=== PATIENT | female | born 1940 ===

== ENCOUNTER 2017-04-16 03:53 | Inpatient (IN) | payer MEDICARE ==
[~2017-04-16] VITALS: Ht 162.6 cm; Wt 80.0 kg
--- NOTE | 2017-04-16 04:31 | ERD ---
ER Documentation Chief Complaint Chief Complaint HPI This 76-year-old female is brought in from her nursing facility for having high heart rate as well as being short of breath and having a cough. She denies fever and chills. Reports that she has pain all over her body. States the symptoms going on for the last few days. Says she does have chest tightness. Has a history of COPD does not feel like this is her COPD. ROS All systems reviewed and are negative except as per history of present illness. Allergies Allergies: Coded Allergies: Penicillins (Verified Allergy, Unknown, 01/04/14) Physical Exam Vitals Vital Signs Date Time Temp Pulse Resp B/P Pulse Ox O2 Delivery O2 Flow Rate FiO2 04/16/17 06:49 99.1 101 19 145/88 98 Non Rebreather 15.0 04/16/17 06:07 Non Rebreather 15.0 04/16/17 05:35 102 16 145/87 100 Non Rebreather 15.0 04/16/17 04:39 97.8 100 14 164/98 99 04/16/17 04:30 Non Rebreather 15 04/16/17 04:10 97.8 104 18 164/98 100 Non Rebreather 15.0 Physical Exam Const: [] Moderate distress Head: Atraumatic Eyes: Normal Conjunctiva ENT: Normal External Ears, Nose and Mouth. Neck: Full range of motion..~ No meningismus. Resp: Mild rhonchorous breath sounds bilaterally with good air movement, mild tachypnea Cardio: Regular tachycardia, no murmurs Abd: Soft, non tender, non distended. Normal bowel sounds Skin: No petechiae or rashes Back: No midline or flank tenderness Ext: No cyanosis, or edema, distal pulses intact all 4 extremities Neur: Awake and alert and oriented 3, no focal deficits Psych: Normal Mood and Affect Result Diagram: 04/16/1741904/16/17419 Results 24 hrs Laboratory Tests Test 04/16/17 04:10 04/16/17 04:20 04/16/17 05:16 04/16/17 05:40 Lactic Acid Level 0.6mmol/L 0.6mmol/L White Blood Count 11.910^3/ul Red Blood Count 3.7810^6/ul Hemoglobin 13.0g/dl Hematocrit 38.1% Mean Corpuscular Volume 100.8fl Mean Corpuscular Hemoglobin 34.4pg Mean Corpuscular Hemoglobin Concent 34.1g/dl Red Cell Distribution Width 13.9% Platelet Count 02011^3/UL Mean Platelet Volume 10.3fl Neutrophils % 68.2% Lymphocytes % 13.8% Monocytes % 7.8% Eosinophils % 9.3% Basophils % 0.5% Nucleated Red Blood Cells % 0.0/100WBC Neutrophils # 8.110^3/ul Lymphocytes # 1.610^3/ul Monocytes # 0.910^3/ul Eosinophils # 1.110^3/ul Basophils # 0.110^3/ul Nucleated Red Blood Cells # 0.010^3/ul Prothrombin Time 19.9Sec Prothrombin Time Ratio 1.6 INR International Normalized Ratio 1.65 Activated Partial Thromboplast Time 40.9Sec Sodium Level 139mmol/L Potassium Level 4.7mmol/L Chloride Level 103mmol/L Carbon Dioxide Level 27mmol/L Anion Gap 14 Blood Urea Nitrogen 28mg/dl Creatinine 0.52mg/dl Glucose Level 119mg/dl Calcium Level 8.7mg/dl Total Bilirubin 0.3mg/dl Direct Bilirubin 0.00mg/dl Indirect Bilirubin 0.3mg/dl Aspartate Amino Transf (AST/SGOT) 33IU/L Alanine Aminotransferase (ALT/SGPT) 40IU/L Alkaline Phosphatase 123IU/L Troponin I 0.065ng/ml B-Type Natriuretic Peptide 250PG/ML Total Protein 7.1g/dl Albumin 3.7g/dl Globulin 3.40g/dl Albumin/Globulin Ratio 1.08 Urine Color YELLOW Urine Clarity CLOUDY Urine pH 7.0 Urine Specific [place] 1.013 Urine Ketones NEGATIVEmg/dL Urine Nitrite POSITIVEmg/dL Urine Bilirubin NEGATIVEmg/dL Urine Urobilinogen NEGATIVEmg/dL Urine Leukocyte Esterase 3+Galo/ul Urine Microscopic RBC 21/HPF Urine Microscopic WBC 24/HPF Urine Amorphous Crystals FEW/HPF Urine Hemoglobin 2+mg/dL Urine Glucose NEGATIVEmg/dL Urine Total Protein 1+mg/dl Test 04/16/17 05:54 Bedside Urine pH (LAB) 7.0 Bedside Urine Protein (LAB) 1+ Bedside Urine Glucose (UA) Negative Bedside Urine Ketones (LAB) Negative Bedside Urine Blood 2+ Bedside Urine Nitrite (LAB) Positive Bedside Urine Leukocyte Esterase (L 3+ Current Medications Medications (Trade) Dose Ordered Sig/Hiram Route PRN Reason Start Time Stop Time Status Last Admin Dose Admin Cefepime HCl (Maxipime 2gm/50 ml (Pmx)) 50 ml @ 100 mls/hr ONCE ONCE IVPB 04/16/17 06:00 04/16/17 06:29 DC 04/16/17 06:42 Ondansetron HCl (Zofran Inj) 4 mg ER BRIDGE PRN IV NAUSEA AND/OR VOMITING 04/16/17 06:30 04/17/17 06:29 Acetaminophen (Tylenol Tab) 650 mg ER BRIDGE PRN PO MILD PAIN/FEVER 04/16/17 06:30 04/17/17 06:29 04/16/17 06:58 Acetaminophen/ Hydrocodone Bitart ([place] (5/325)) 1 tab Q6 PRN PO Pain 04/16/17 07:30 Procedures/MDM UTI with sepsis debilitated patient with multiple comorbidities causing tachycardia. She was given greater than 30 cc/kg of IV fluid, cultures were obtained. Patient was given cefepime empirically. Vital signs did improve with fluid administration. No hypotension. He is going to be admitted for further antibiotic therapy and close monitoring. Spoke with Dr. Mancilla to be admitting the patient to telemetry for further workup and monitoring. EKG interpretation: Sinus tachycardia with first-degree AV block, rate of 102, left axis deviation, no ST or T-wave changes concerning for acute ischemia. Abnormal EKG teletypesetter monitor interpretation: Sinus tachycardia without arrhythmia Chest x-ray interpretation: Significant scoliosis with extreme spinal curvature , I see no obvious infiltrate, no pulmonary edema, no pneumothorax, no fractures Critical care time greater than 35 minutes: This includes treatment of unstable vital signs, management of sepsis, early antibiotic therapy, multiple space bedside to reassess status, correction of unstable vital signs, review of chart , discussion with patient admitting doctor. This does not include billable procedures Departure Diagnosis: Primary Impression: Sepsis secondary to UTI Condition: Jasvir REEVESKIERRAJESSICADILAN PEREZ Apr 16, 2017 04:31
[2017-04-16 04:37] LABS: BASOPHIL # 0.1 10^3/ul (0.0-0.1); BASOPHILS % 0.5 % (0.0-2.0); EOSINOPHILS # 1.1 10^3/ul (0.0-0.5); EOSINOPHILS % 9.3 % (0.0-7.0); HEMATOCRIT 38.1 % (37.0-47.0); LYMPHOCYTES # 1.6 10^3/ul (0.8-2.9); LYMPHOCYTES % 13.8 % (15.0-51.0); MEAN CORPUSCULAR HEMOGLOBIN 34.4 pg (29.0-33.0); MEAN CORPUSCULAR HGB CONC 34.1 g/dl (32.0-37.0); MEAN CORPUSCULAR VOLUME 100.8 fl (82.0-101.0); MEAN PLATELET VOLUME 10.3 fl (7.4-10.4); MONOCYTE # 0.9 10^3/ul (0.3-0.9); MONOCYTES % 7.8 % (0.0-11.0); NEUTROPHIL # 8.1 10^3/ul (1.6-7.5); NEUTROPHILS % 68.2 % (39.0-77.0); PLATELET COUNT 216 10^3/UL (140-415); RED BLOOD COUNT 3.78 10^6/ul (4.20-5.40); RED CELL DISTRIBUTION WIDTH 13.9 % (11.5-14.5); WHITE BLOOD COUNT 11.9 10^3/ul (4.8-10.8)
[2017-04-16 04:58] LABS: INR 1.65; PROTIME 19.9 Sec (11.9-14.9); PT RATIO 1.6
[2017-04-16 04:59] LABS: PARTIAL THROMBOPLASTIN TIME 40.9 Sec (25.0-35.0)
[2017-04-16 05:01] LABS: ALBUMIN 3.7 g/dl (3.3-4.9); ALBUMIN/GLOBULIN RATIO 1.08; BILIRUBIN,INDIRECT 0.3 mg/dl (0-1.1); BILIRUBIN,TOTAL 0.3 mg/dl (0.2-1.3); CALCIUM 8.7 mg/dl (8.4-10.2); CREATININE 0.52 mg/dl (0.44-1.00); POTASSIUM 4.7 mmol/L (3.5-5.1); TOTAL PROTEIN 7.1 g/dl (6.1-8.1)
[2017-04-16 05:12] LABS: TROPONIN-I 0.065 ng/ml (0.00-0.12)
--- NOTE | 2017-04-16 05:41 | RADRPT ---
PROCEDURE: CHEST CLINICAL INDICATION: 76-year-old female with shortness of breath and sepsis. TECHNIQUE: AP upright view of the chest was obtained portably on two radiographs. The images were reviewed on a PACS workstation. COMPARISON: CR CHEST 01/16/2014; CR CHEST 01/05/2014 FINDINGS: The cardiomediastinal silhouette is enlarged but without significant interval change. The thoracic a hazel is calcified and ectatic. Chronic lung changes are present. There is consolidation and partial collapse of the right upper lobe. There is persistent mild blunting of the process the phrenic angle s which may scarring however a small pleural effusions cannot be excluded. There is no evidence for congestive heart failure. There is no evidence for pneumothorax. Marked thoracolumbar scoliosis is n oted. Degenerative changes are seen within the glenohumeral joints with marked deformity in the righ t humeral head. IMPRESSION: 1. Cardiomegaly. 2. Calcified thoracic aorta. 3. Right upper lobe consolidation and partial collapse. 4. Chronic lung changes. 5. Questionable small bilateral pleural effusions. 6. Degenerative changes glenohumeral joints with right humeral head deformity. 7. Marked thoracolumbar scoliosis. .Gary Burnham MD, MD Date Time Electronically viewed and signed by .Gary uBrnham MD, on 04/16/2017 05:41 .Brian/
[2017-04-16 05:54] LABS: URINE BLOOD (Dip) POC 2+ (NEGATIVE)
[2017-04-16] MEDS ORDERED: CEFEPIME 2GM/50 ML (PMX) 50 ML IVPB ONE ×3 (06:00→18:00)
[2017-04-16] MEDS ORDERED: ACETAMINOPHEN 325 MG TAB PO PRN (06:30)
[2017-04-16] MEDS ORDERED: ONDANSETRON 4 MG INJ IV PRN (06:30)
[2017-04-16 07:22] LABS: ADD UMIC YES; UR AMORPHOUS CRYSTAL FEW /HPF (NONE SEEN); UR ASCORBIC ACID NEGATIVE (NEGATIVE); UR BILIRUBIN (Dip) NEGATIVE (NEGATIVE); UR BLOOD (Dip) 2+ mg/dL (NEGATIVE); UR CLARITY CLOUDY (CLEAR); UR COLOR YELLOW (YELLOW); UR GLUCOSE (Dip) NEGATIVE (NEGATIVE); UR KETONES (Dip) NEGATIVE (NEGATIVE); UR LEUKOCYTE ESTERASE (Dip) 3+ Leu/ul (NEGATIVE); UR NITRITE (Dip) POSITIVE (NEGATIVE); UR RBC 21 /HPF (0-5); UR SPECIFIC GRAVITY (Dip) 1.013 (1.003-1.030); UR TOTAL PROTEIN (Dip) 1+ mg/dl (NEGATIVE); UR UROBILINOGEN (Dip) NEGATIVE (NEGATIVE)
[2017-04-16] MEDS ORDERED: SOD CHLORIDE 0.9% 1,000 ML IV ONE ×2 (08:00)
[2017-04-16] MEDS ORDERED: SOD CHLORIDE 0.9% 500 ML IV ONE (08:00)
[2017-04-16] MEDS: HYDROCODONE/APAP (5/325) TAB PO PRN ×2 (08:58→20:43)
--- NOTE | 2017-04-16 09:21 | RADRPT ---
PROCEDURE: Right shoulder series CLINICAL INDICATION: Trauma TECHNIQUE: 2 views right shoulder were obtained COMPARISON: Chest same day FINDINGS: Pleural parenchymal changes involving the right upper hemithorax and recommend reference to the ches t Report same day. There is severe degenerate joint disease of the right acromioclavicular and gleno humeral joints. No definite acute fractures or dislocations. The bones are osteopenic. No focal bony blastic or lytic lesions. IMPRESSION: 1. 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 2. Recommend reference to the chest Report same day for lung findings. RPTAT:AAJJ Physician Pilo Date Time Electronically viewed and signed by Leann Kincaid Physician on 04/16/2017 09:20 BM/
--- NOTE | 2017-04-16 09:21 | RADRPT ---
PROCEDURE: left shoulder series CLINICAL INDICATION: Trauma TECHNIQUE: 2 views left shoulder were obtained COMPARISON: None FINDINGS: There is severe degenerate joint disease left glenohumeral joint. Mild degenerate joint disease left acromioclavicular joint. No evidence acute fracture dislocation or AC separation. The bones are ost eopenic without focal bony blastic or lytic lesions. IMPRESSION: Degenerate joint disease left glenohumeral and acromioclavicular joints as above without evidence of acute fracture dislocation or AC separation. RPTAT:AAJJ Physician Pilo Date Time Electronically viewed and signed by Physician Pilo on 04/16/2017 09:21 /
--- NOTE | 2017-04-16 10:16 | CONS ---
Date/Time of Note Date/Time of Note DATE: 04/16/17 TIME: 10:14 Assessment/Plan Assessment/Plan Additional Assessment/Plan UTI COPD ATYPICAL CHEST PAIN SINUS TACHYCARDIA -will check trops, echo, ekg -moniotr for arrythmias -abx initiated -possible hhn and pulm management Consultation Date/Type/Reason Admit Date/Time Hx of Present Illness This 76-year-old female is brought in from her nursing facility for having high heart rate as well as being short of breath and having a cough. She denies fever and chills. Reports that she has pain all over her body. States the symptoms going on for the last few days. Says she does have chest tightness. Has a history of COPD does not feel like this is her COPD. She is currently homedynacmially stable with sinus tachycardia but no palpitioans and no dizziness Social History Smoking Status: Former smoker Exam/Review of Systems Vital Signs Vitals Vital Signs Date Time Temp Pulse Resp B/P Pulse Ox O2 Delivery O2 Flow Rate FiO2 04/16/17 06:49 99.1 101 19 145/88 98 Non Rebreather 15.0 Results Result Diagram: 04/16/17 0420 04/16/17 0420 Results 24 hrs Laboratory Tests Test 04/16/17 04:10 04/16/17 04:20 04/16/17 05:16 04/16/17 05:40 Lactic Acid Level 0.6 0.6 White Blood Count 11.9 H Red Blood Count 3.78 #L Hemoglobin 13.0 # Hematocrit 38.1 # Mean Corpuscular Volume 100.8 Mean Corpuscular Hemoglobin 34.4 H Mean Corpuscular Hemoglobin Concent 34.1 Red Cell Distribution Width 13.9 # Platelet Count 216 Mean Platelet Volume 10.3 Neutrophils % 68.2 Lymphocytes % 13.8 L Monocytes % 7.8 Eosinophils % 9.3 H Basophils % 0.5 Nucleated Red Blood Cells % 0.0 Neutrophils # 8.1 H Lymphocytes # 1.6 Monocytes # 0.9 Eosinophils # 1.1 H Basophils # 0.1 Nucleated Red Blood Cells # 0.0 Prothrombin Time 19.9 H Prothrombin Time Ratio 1.6 INR International Normalized Ratio 1.65 Activated Partial Thromboplast Time 40.9 H Sodium Level 139 Potassium Level 4.7 Chloride Level 103 Carbon Dioxide Level 27 Anion Gap 14 Blood Urea Nitrogen 28 H Creatinine 0.52 Glucose Level 119 Calcium Level 8.7 Total Bilirubin 0.3 Direct Bilirubin 0.00 Indirect Bilirubin 0.3 Aspartate Amino Transf (AST/SGOT) 33 Alanine Aminotransferase (ALT/SGPT) 40 Alkaline Phosphatase 123 H Troponin I 0.065 B-Type Natriuretic Peptide 250 Total Protein 7.1 Albumin 3.7 Globulin 3.40 H Albumin/Globulin Ratio 1.08 Urine Color YELLOW Urine Clarity CLOUDY A Urine pH 7.0 Urine Specific [place] 1.013 Urine Ketones NEGATIVE Urine Nitrite POSITIVE A Urine Bilirubin NEGATIVE Urine Urobilinogen NEGATIVE Urine Leukocyte Esterase 3+ H Urine Microscopic RBC 21 H Urine Microscopic WBC 24 H Urine Amorphous Crystals FEW A Urine Hemoglobin 2+ H Urine Glucose NEGATIVE Urine Total Protein 1+ H Test 04/16/17 05:54 Bedside Urine pH (LAB) 7.0 Bedside Urine Protein (LAB) 1+ H Bedside Urine Glucose (UA) Negative Bedside Urine Ketones (LAB) Negative Bedside Urine Blood 2+ H Bedside Urine Nitrite (LAB) Positive H Bedside Urine Leukocyte Esterase (L 3+ H Medications Medications Current Medications Acetaminophen/ Hydrocodone Bitart ([place] (5/325)) 1 tab Q6 PRN PO Pain Last administered on 04/16/17t 08:58; Admin Dose 1 TAB; Start 04/16/17 at 07:30 JOYCE RIVERA MD Apr 16, 2017 10:16
[2017-04-16] MEDS ORDERED: CITA20TA11 PO (11:25)
[2017-04-16] MEDS ORDERED: LACTINEX PO (11:25)
[2017-04-16] MEDS ORDERED: DOCU-144 PO (11:26)
[2017-04-16] MEDS ORDERED: CRAN425C2 PO (11:26)
[2017-04-16] MEDS ORDERED: IPRA3AMP INHALATION (11:27)
[2017-04-16] MEDS ORDERED: BISA10SU75 PR (11:27)
[2017-04-16] MEDS ORDERED: MINE133E23 RC (11:28)
[2017-04-16] MEDS ORDERED: ALEN70TA30 PO ×2 (11:29→11:30)
[2017-04-16] MEDS ORDERED: GABA300C16 PO (11:30)
[2017-04-16] MEDS ORDERED: FURO-110 PO (11:36)
[2017-04-16] MEDS ORDERED: MULTI PO (11:37)
[2017-04-16] MEDS ORDERED: HYDR-906 PO (11:37)
[2017-04-16] MEDS ORDERED: UDMOM PO (11:37)
[2017-04-16] MEDS ORDERED: POTA20TA96 PO (11:38)
[2017-04-16] MEDS ORDERED: TRAM-40 PO (11:38)
[2017-04-16] MEDS ORDERED: CALC600T24 PO (11:39)
[2017-04-16] MEDS ORDERED: ACET-141 PO (11:39)
[2017-04-16] MEDS ORDERED: CRAN3875 PO (11:40)
[2017-04-16] MEDS ORDERED: ASCO500C7 PO (11:40)
[2017-04-16] MEDS ORDERED: CHOL100062 PO (11:41)
[2017-04-16] MEDS ORDERED: LORAZEPAM 2 MG INJ IV ONE (13:00)
[2017-04-16] MEDS ORDERED: ALBUTEROL/IPRATROPIUM (NEB) 3 ML AMP HHN STA (13:57)
--- NOTE | 2017-04-16 14:37 | HP ---
DATE OF ADMISSION: 04/16/2017 CHIEF COMPLAINT: Shortness of breath and respiratory failure. HISTORY OF PRESENT ILLNESS: This is a 76-year-old female with a past medical history of DVT, histor y of hypertension, history of anemia, history of chronic pain syndrome, history of chronic left hip wound, history of severe arthritis, history of hypothyroidism, who presents to [facility] Emergency Room with shortness of breath and respiratory failure. The patient was noted to b e short of breath, to be tachycardic at her [facility] facility. As a result, she was brought into [facility] Emergency Room. Upon arrival to the emergency room, the patient h ad vitals that showed a blood pressure of 164/98. Laboratory data shows white count 11,000. The pa daniel had a urinalysis with positive nitrites, pyuria, hematuria. The patient, in the emergency crys m, was placed on 100% nonrebreather and was given Tylenol and IV antibiotics. There have been no re ports of hemoptysis, hematemesis, hematochezia. PAST MEDICAL HISTORY: As stated above, history of DVT, history of arrhythmia, history of COPD, hist ory of hypertension, history of anemia, history of debility, history of chronic hip wound. PAST SURGICAL HISTORY: Status post left hip arthroplasty, status post suprapubic catheter placement . ALLERGIES: PATIENT IS ALLERGIC TO PENICILLIN. FAMILY HISTORY: Noncontributory. SOCIAL HISTORY: Lives at a skilled nurse facility. MEDICATIONS: The patient's medications have been reviewed and reconciled. REVIEW OF SYSTEMS: A 14-point review of systems was conducted. Pertinent positives in HPI, otherwi se negative. PHYSICAL EXAMINATION: VITAL SIGNS: Blood pressure is 145/88, respiration 19, pulse 101, temperature 99.1. HEENT: Head is normocephalic. Pupils are reactive to light. NECK: Supple. HEART: Tachycardic. LUNGS: Show diminished breath sounds at base. Positive rhonchi. ABDOMEN: Soft, nontender to palpation. Positive suprapubic catheter. EXTREMITIES: Negative for clubbing, cyanosis. Trace edema. DERMATOLOGIC: No rashes. MUSCULOSKELETAL: No joint effusions. The patient has healing wounds. NEUROLOGIC: Limited exam due to the patient's lack of cooperation. LABORATORY DATA STUDIES: Chest x-ray shows right upper lobe consolidation and partial collapse, chr onic lung changes, questionable bilateral pleural effusions, and degenerative changes in the glenohu meral joint with right humeral head deformity. Laboratory data shows a sodium 139, potassium 4.7, chloride 103, BUN 28, creatinine 0.52. White cou nt 9.9, hemoglobin 13.0, and platelet count is 216. ASSESSMENT AND PLAN: This is a 76-year-old female who presents with: 1. Acute hypoxemic respiratory failure. Etiology is felt to be secondary to possible pneumonia, sep sis. The patient is currently on 100% nonrebreather. Plan at this point is to check an ABG. We wi ll continue nebulizer therapy, continue nonrebreather. We will place a pulmonary consult for evalua tion. Please note the patient may also be having an underlying chronic obstructive pulmonary diseas e exacerbation. 2. Sepsis secondary to urinary tract infection and pneumonia. Continue current antibiotic regimen. We will place an Infectious Disease consult for evaluation. 3. Acute encephalopathy, etiology toxic metabolic. Continue to monitor. 4. Hypertension. The patient will be resumed on blood pressure medications. Continue to observe. 5. History of arrhythmia, currently in sinus rhythm. Continue to monitor. Follow up with Cardiolog y. 6. History of deep venous thrombosis. The patient is currently on Coumadin. INR is not at goal. W ill resume anticoagulation therapy. 7. History of anemia, monitor hemoglobin and hematocrit levels. 8. Chronic lower extremity left hip wound, improving. Will place a wound care consult for evaluatio n. 9. Degenerative changes in the right humeral head. Will get bilateral x-rays of the arms for furthe r evaluation. 10. Chronic pain syndrome. Continue current pain regimen. 11. Gastrointestinal and deep venous thrombosis prophylaxis. Please note I spent over 25 minutes in vuee-yx-dati time with this patient. The patient is DNR. Dictated By: DARRICK BROWNE DO NR/NTS Conf#: [id number] DID#: [id number]
[2017-04-16 17:00] VITALS: TEMP 98.3
[2017-04-16] MEDS ORDERED: MAGNESIUM HYDROXIDE 30ML CUP PO PRN (18:00)
[2017-04-16] MEDS ORDERED: ALBUTEROL/IPRATROPIUM (NEB) 3 ML AMP NEB PRN (18:00)
[2017-04-16] MEDS ORDERED: MINERAL OIL 133 ML ENEMA PR PRN (18:00)
[2017-04-16] MEDS ORDERED: ACETAMINOPHEN 500 MG TAB PO PRN (18:00)
[2017-04-16] MEDS ORDERED: BISACODYL 10 MG SUPP PR PRN (18:00)
[2017-04-16] MEDS ORDERED: DOCUSATE SODIUM 100 MG CAP PO PRN (18:00)
--- NOTE | 2017-04-16 18:02 | CONS ---
DATE OF ADMISSION: 04/16/2017 DATE OF CONSULTATION: 04/16/2017 INFECTIOUS DISEASE CONSULTATION TYPE OF CONSULTATION: Infectious Disease. REASON FOR CONSULTATION: Antibiotic management. HISTORY OF PRESENT ILLNESS: Agustina Guzman is a 76-year-old female who was admitted on 04/16/2017 from her nursing facility for tachycardia and shortness of breath. She denies fever or chills, but does have a cough and pain all over her body. Symptoms have been going on for the last few days with ch est tightness. Has a history of COPD, but this is different than what she usually feels. SHE IS AL SO ALLERGIC TO PENICILLIN. On admission, her white count was 11.9, H and H of 13 and 38.1, platelet count 216,000. BUN and creatinine 28/0.52. Random glucose of 119. The patient was noted to have a urine which was cloudy, positive for nitrites, 3+ leukocyte esterase, 24 white cells per high thanh red field. The patient was started on cefepime. PAST MEDICAL HISTORY: Operations as outlined. FAMILY HISTORY: Noncontributory. SOCIAL HISTORY: She does not smoke, drink or abuse drugs. ALLERGIES: PENICILLIN. MEDICATIONS: Per chart. REVIEW OF SYSTEMS: Noncontributory. PHYSICAL EXAMINATION: GENERAL: The patient is a well-developed, well-nourished elderly female who is awake, responsive, i n no acute distress. VITAL SIGNS: Stable. She is afebrile. SKIN: Without generalized rash. HEENT: Within normal limits. NECK: Supple. LYMPH NODES: None palpable. CHEST: Decreased breath sounds at the bases with occasional rhonchi. HEART: Without murmur or gallop. She is tachycardic. ABDOMEN: Soft, nontender, without organosplenomegaly or masses. EXTREMITIES: Without cyanosis, clubbing, or edema. RECTAL AND GENITAL: Deferred. NEUROLOGIC: No focal neurological abnormalities. ANCILLARY LABORATORY DATA: A chest x-ray shows cardiomegaly, calcified thoracic aorta, right upper lobe consolidation and partial collapse, chronic lung changes, questionable small bilateral pleural effusions, degenerative changes in the glenohumeral joint with right humeral head deformity, marked thoracolumbar scoliosis. IMPRESSION AND PLAN: The patient has both evidence of urinary tract infection as well as pneumoniti s. She is currently on cefepime to which I concur. She has blood cultures ordered, urine cultures ordered. We should get sputum cultures as well. I will dictate my findings to the hospitalist and to Dr. Ortega, creative arts music therapist. Dictated By: STEPHANIE MORTENSEN MD, JD/JOSE Conf#: [id number] DID#: [id number]
[2017-04-16 18:10] VITALS: PULSE 79
--- NOTE | 2017-04-16 18:17 | CONS ---
DATE OF ADMISSION: 04/16/2017 DATE OF CONSULTATION: TYPE OF CONSULTATION: Pulmonary. REASON FOR CONSULTATION: Shortness of breath. Thank you, Dr. Estevez, for this consultation. HISTORY OF PRESENT ILLNESS: This is a 76-year-old lady with multiple medical problems, frequent adm issions to [facility], admitted with several-day history of increasing shortness o f breath, orthopnea, PND, now requiring nonrebreather. Her POLST states she is a DNR and comfort me asures if she deteriorates. PAST MEDICAL HISTORY: Includes recurrent hypoxemic respiratory failure, aspiration pneumonia, conge stive cardiac failure. MEDICATIONS: Per chart. ALLERGIES: PENICILLIN. SOCIAL HISTORY: Nonsmoker, no alcohol, no history of drug use. FAMILY HISTORY: Noncontributory. SYSTEMS REVIEW: A 12-point review of systems was negative other than that mentioned above. PHYSICAL EXAMINATION: GENERAL: Elderly-appearing lady, eyes open, on nonrebreather, mild confusion. VITAL SIGNS: Currently afebrile, pulse is 98, blood pressure 156/97, O2 saturation 96% on nonrebrea ther. NECK: Supple. No JVD or lymphadenopathy. CARDIAC: S1, S2, no added sounds or murmurs. CHEST: Diminished air entry bilaterally. ABDOMEN: Soft, nontender. No guarding or rebound. EXTREMITIES: No cyanosis, clubbing, or edema. NEUROLOGIC: Generalized weakness. LABORATORY DATA: White count 11.9, hemoglobin 13, platelets within normal limits. BUN 28, creatini ne 0.52. INR 1.65. DIAGNOSTIC DATA: Chest x-ray was reviewed, showed low lung volumes, right upper lobe consolidation, ____ collapse. Shoulder x-rays demonstrate degenerative joint disease without any evidence of frac ture or dislocation. IMPRESSION AND PLAN: 1. Hypoxemic respiratory failure, likely secondary to healthcare-associated pneumonia. 2. Possible aspiration component. 3. History of shoulder injury. PLAN: 1. Continue broad-spectrum antibiotics. 2. Supplemental O2. 3. DVT and GI prophylaxis. Overall prognosis remains guarded. Dictated By: FARIBA SINGH MD SV/JOSE Conf#: [id number] DID#: [id number] CC: DARRICK ESTEVEZ DO;*EndCC*
[2017-04-16 20:00] VITALS: Ht 162.6 cm; Wt 80.0 kg
[2017-04-16 20:07] VITALS: PULSE 85
[2017-04-16] MEDS: GABAPENTIN 300 MG CAP PO SCH (20:12)
[2017-04-16 20:22] VITALS: BP 170/77; RESP 19
[2017-04-16] MEDS: LACTOBACILLUS RHAMNOSUS CAP PO SCH (21:00)
[2017-04-16] MEDS ORDERED: NON-FORMULARY/PATIENT OWN MED (Cran/Vitc/Mannose/Inulin/Brom (Uti-Stat Liquid) 3,875 MG) PO SCH (21:00)
[2017-04-16] MEDS ORDERED: NON-FORMULARY/PATIENT OWN MED (Cranberry Extract (Cranberry) 425 MG) PO SCH (21:00)
[2017-04-16] MEDS: GUAIFENESIN/CODEINE 5ML CUP PO PRN (22:23)
[2017-04-16] MEDS: traMADol 50 MG TAB PO PRN (23:05)
[2017-04-16] MEDS: ALBUTEROL/IPRATROPIUM (NEB) 3 ML AMP NEB PRN (23:19)
[2017-04-16 23:53] VITALS: BP 151/73; RESP 19
[2017-04-17] VITALS (11 sets, daily range): BP systolic 118–144; BP diastolic 60–77; PULSE 72–85; RESP 18–22
[2017-04-17] MEDS ORDERED: PENDING SANTYL ORDER FOR WOUND CARE XX PRN (01:30)
[2017-04-17] MEDS: HYDROCODONE/APAP (5/325) TAB PO PRN ×3 (03:44→17:50)
[2017-04-17] MEDS: GUAIFENESIN/CODEINE 5ML CUP PO PRN ×3 (03:44→20:49)
[2017-04-17] MEDS: ALBUTEROL/IPRATROPIUM (NEB) 3 ML AMP NEB PRN ×4 (04:03→20:56)
[2017-04-17 06:51] LABS: BASOPHIL # 0.1 10^3/ul (0.0-0.1); BASOPHILS % 0.6 % (0.0-2.0); EOSINOPHILS # 0.3 10^3/ul (0.0-0.5); EOSINOPHILS % 2.3 % (0.0-7.0); HEMATOCRIT 37.4 % (37.0-47.0); HEMOGLOBIN 12.5 g/dl (12.0-16.0); LYMPHOCYTES # 1.4 10^3/ul (0.8-2.9); LYMPHOCYTES % 12.2 % (15.0-51.0); MEAN CORPUSCULAR HEMOGLOBIN 34.1 pg (29.0-33.0); MEAN CORPUSCULAR HGB CONC 33.4 g/dl (32.0-37.0); MEAN CORPUSCULAR VOLUME 101.9 fl (82.0-101.0); MEAN PLATELET VOLUME 10.7 fl (7.4-10.4); MONOCYTE # 1.2 10^3/ul (0.3-0.9); MONOCYTES % 10.4 % (0.0-11.0); NEUTROPHIL # 8.6 10^3/ul (1.6-7.5); PLATELET COUNT 203 10^3/UL (140-415); RED BLOOD COUNT 3.67 10^6/ul (4.20-5.40); RED CELL DISTRIBUTION WIDTH 13.5 % (11.5-14.5); WHITE BLOOD COUNT 11.6 10^3/ul (4.8-10.8)
[2017-04-17 07:00] LABS: INR 2.48; PROTIME 27.5 Sec (11.9-14.9); PT RATIO 2.1
[2017-04-17 07:15] LABS: CALCIUM 8.6 mg/dl (8.4-10.2); CREATININE 0.34 mg/dl (0.44-1.00); MAGNESIUM 1.9 mg/dl (1.7-2.5); PHOSPHORUS 3.1 mg/dl (2.5-4.9); POTASSIUM 4.2 mmol/L (3.5-5.1)
[2017-04-17] MEDS ORDERED: ALENDRONATE 70 MG TAB PO SCH (07:30)
--- NOTE | 2017-04-17 07:50 | RADRPT ---
PROCEDURE: XR Chest. CLINICAL INDICATION: Respiratory failure TECHNIQUE: AP Portable chest. COMPARISON: 01/16/2014 chest x-ray FINDINGS: The soft tissues and bones are remarkable for dextroscoliosis of the thoracic spine with bilateral a cromioclavicular osteoarthropathy and severe right greater than left glenohumeral osteoarthropathy. Mild cardiomegaly and vascular calcifications of the thoracic aorta are noted. Bibasilar discoid ate lectasis or infiltrates are present with small bilateral pleural effusions. No pneumothorax is pre sent. IMPRESSION: 1. Bibasilar discoid atelectasis and small bilateral pleural effusions. 2. Mild cardiomegaly and atherosclerotic vascular disease 3. Dextroscoliosis of the thoracic spine with degenerative changes as indicated above and bilateral glenohumeral and acromioclavicular RPTAT: HDC .Suad Duran MD, Date Time Electronically viewed and signed by .Suad Duran MD, on 04/17/2017 07:50 .C/
[2017-04-17] MEDS: CHOLECALCIFEROL 1,000 UNIT TAB PO SCH ×2 (08:38→09:58)
[2017-04-17] MEDS: GABAPENTIN 300 MG CAP PO SCH ×4 (08:39→20:49)
[2017-04-17] MEDS: POTASSIUM CHLORIDE (SR) 20 MEQ TAB PO SCH (08:39)
[2017-04-17] MEDS: CALCIUM CARBONATE 1.25 GM TAB PO SCH (08:39)
[2017-04-17] MEDS: CITALOPRAM 20 MG TAB PO SCH (08:39)
[2017-04-17] MEDS: MULTIVITAMINS THERAPEUTIC TAB PO SCH (08:39)
[2017-04-17] MEDS: LACTOBACILLUS RHAMNOSUS CAP PO SCH ×2 (08:39→20:49)
[2017-04-17] MEDS: ASCORBIC ACID 500 MG TAB PO SCH (08:39)
[2017-04-17] MEDS: CEFEPIME 2GM/50 ML (PMX) 50 ML IVPB SCH ×2 (08:39→20:57)
[2017-04-17] MEDS: FUROSEMIDE 20 MG TAB PO SCH (08:40)
[2017-04-17 08:57] LABS: AADO2 Arterial 134.9 mmHg (7.0-24.0); Allen Test ACCEPTAB; Arterial Base Excess -3.1 mmol/L (-3.0-3); Arterial COHb 0.4 % (0.0-3.0); Arterial Fraction of Oxyhgb 93.3 % (93.0-99.0); Arterial HCO3 23.3 mmol/L (22.0-26.0); Arterial MetHb 0.3 % (0.0-1.5); Arterial Total Hemglobin 13.9 g/dl (12.0-18.0); MODE NASAL CANNULA
--- NOTE | 2017-04-17 09:59 | CONS ---
Date/Time of Note Date/Time of Note DATE: 04/17/17 TIME: 09:55 Assessment/Plan Assessment/Plan Additional Assessment/Plan Sepsis likely secondary to pneumonia and possible UTI Preserved ejection fraction Hypertension History of DVT on anticoagulation -Antibiotics as per infectious disease. Coumadin as per INR. Patient on low- dose Lasix. Continue respiratory treatments as tolerated. Dr Hogan to resume care 04/18/2017 Consultation Date/Type/Reason Admit Date/Time Apr 16, 2017 at 06:14 Initial Consult Date Type of Consultation: cv 24 HR Interval Summary Free Text/Dictation Shortness of breath is slightly better today but still with cough. Denies chest pain or dizziness Exam/Review of Systems Vital Signs Vitals Vital Signs Date Time Temp Pulse Resp B/P Pulse Ox O2 Delivery O2 Flow Rate FiO2 04/17/17 09:15 80 18 95 Nasal Cannula 4.0 04/17/17 07:45 98.8 140/63 Intake and Output 04/16/17 04/16/17 04/17/17 15:00 23:00 07:00 Intake Total 500 ml Output Total 700 ml Balance -200 ml Exam Coughing at times during exam, no apparent distress, following commands Constitutional: alert Head: normocephalic Respiratory: other (Coarse breath sounds bilaterally with scattered rhonchi, no wheezing) Cardiovascular: other (S1-S2 heard), regular rate and rhythm Gastrointestinal: bowel sounds, non-tender, soft Extremities: edema Results Result Diagram: 04/17/1714 04/17/1714 Results 24 hrs Laboratory Tests Test 04/17/17 06:14 04/17/17 07:00 White Blood Count 11.6 H Red Blood Count 3.67 L Hemoglobin 12.5 Hematocrit 37.4 Mean Corpuscular Volume 101.9 H Mean Corpuscular Hemoglobin 34.1 H Mean Corpuscular Hemoglobin Concent 33.4 Red Cell Distribution Width 13.5 Platelet Count 203 Mean Platelet Volume 10.7 H Neutrophils % 74.0 Lymphocytes % 12.2 L Monocytes % 10.4 Eosinophils % 2.3 Basophils % 0.6 Nucleated Red Blood Cells % 0.0 Neutrophils # 8.6 H Lymphocytes # 1.4 Monocytes # 1.2 H Eosinophils # 0.3 Basophils # 0.1 Nucleated Red Blood Cells # 0.0 Prothrombin Time 27.5 #H Prothrombin Time Ratio 2.1 INR International Normalized Ratio 2.48 Sodium Level 140 Potassium Level 4.2 Chloride Level 106 Carbon Dioxide Level 24 Anion Gap 14 Blood Urea Nitrogen 18 # Creatinine 0.34 L Glucose Level 96 Calcium Level 8.6 Phosphorus Level 3.1 Magnesium Level 1.9 Blood Gas Specimen Source Blood arterial Arterial Blood Date Drawn 04/17/2017 8:45:10 AM Arterial Blood pH (Temp corrected) 7.318 L Arterial Blood pCO2 (Temp correct) 46.4 H Arterial Blood pO2 (Temp corrected) 68.0 L Arterial Blood HCO3 23.3 Arterial Blood Base Excess -3.1 L Arterial Blood Oxygen Saturation 94.0 L Thomas Test ACCEPTAB Arterial Blood Gas Puncture Site Right Radial Arterial Blood Carboxyhemoglobin 0.4 Arterial Blood Methemoglobin 0.3 Blood Gas A-a O2 Differential 134.9 H Oxyhemoglobin Percent 93.3 Total Hemoglobin 13.9 Blood Gas Temperature 37.0 Blood Gas Modality NASAL CANNULA FiO2 36.0 Blood Gas Notified Whom DT Blood Gas Notified Time 04/17/2017 8:57:34 AM Medications Medications Current Medications Acetaminophen/ Hydrocodone Bitart ([place] (5/325)) 1 tab Q6 PRN PO Pain Last administered on 04/17/17 03:44; Admin Dose 1 TAB; Start 04/16/17 at 07:30 Acetaminophen (Tylenol Tab) 1,000 mg Q6H PRN PO PAIN AND OR ELEVATED TEMP; Start 04/16/17 at 18:00 Alendronate Sodium (Fosamax) 70 mg Loya@0730 PO Last administered on 04/17/17 08:20; Admin Dose 70 MG; Start 04/17/17 at 07:30 Ascorbic Acid (Vitamin C) 500 mg DAILY PO Last administered on 04/17/17 08:39 ; Admin Dose 500 MG; Start 04/17/17 at 09:00 Bisacodyl (Dulcolax Supp) 10 mg Q24H PRN [place] CONSTIPATION; Start 04/16/17 at 18 :00 Cholecalciferol (Vitamin D) 1,000 unit DAILY PO Last administered on 08:38; Admin Dose 1,000 UNIT; Start 04/17/17 at 09:00 Citalopram Hydrobromide (Celexa) 20 mg DAILY PO Last administered on 08:39; Admin Dose 20 MG; Start 04/17/17 at 09:00 Docusate Sodium (Colace) 200 mg QHS PRN PO CONSTIPATION; Start 04/16/17 at 18: 00 Furosemide (Lasix) 10 mg DAILY PO Last administered on 04/17/17 08:40; Admin Dose 10 MG; Start 04/17/17 at 09:00 Gabapentin (Neurontin) 300 mg QID PO Last administered on 04/17/17 08:39; Admin Dose 300 MG; Start 04/16/17 at 21:00 Acetaminophen/ Hydrocodone Bitart ([place] (5/325)) 1 tab Q4 PRN PO SEVERE PAIN LEVEL 7-10 Last administered on 04/16/17 20:43; Admin Dose 1 TAB; Start 04/16 at 18:00 Magnesium Hydroxide (Milk Of Mag) 30 ml DAILY PRN PO CONSTIPATION; Start 04/16 at 18:00 Mineral Oil (Fleet Mineral Oil Enema) 133 ml DAILY PRN [place] CONSTIPATION; Start 04/16/17 at 18:00 Multivitamins Therapeutic (Theragran) 1 tab DAILY PO Last administered on 04/17 08:39; Admin Dose 1 TAB; Start 04/17/17 at 09:00 Potassium Chloride (Klor-Con 20) 20 meq DAILY PO Last administered on 08:39; Admin Dose 20 MEQ; Start 04/17/17 at 09:00 Tramadol HCl (Ultram) 50 mg BID PRN PO PAIN Last administered on 04/16/17 23: 05; Admin Dose 50 MG; Start 04/16/17 at 18:00 Calcium Carbonate (Oyster Shell Calcium) 1.25 gm DAILY PO Last administered on 04/17/17 08:39; Admin Dose 1.25 GM; Start 04/17/17 at 09:00 Lactobacillus Acidophilus/ Rhamnosus (Culturelle) 1 cap BID PO Last administered on 04/17/17 08:39; Admin Dose 1 CAP; Start 04/16/17 at 21:00 Guaifenesin/ Codeine Phosphate 5 ml 5 ml Q4H PRN PO cough Last administered on 04/17/17 08:38; Admin Dose 5 ML; Start 04/16/17 at 21:30 Cefepime HCl (Maxipime 2gm/50 ml (Pmx)) 50 ml @ 100 mls/hr Q12 IVPB Last administered on 04/17/17t 08:39; Admin Dose 100 MLS/HR; Start 04/17/17 at 09: 00 Misc[facility] This patient briggs... PRN PRN XX WOUND CARE; Start 04/17/17 at 01:30 Henry Vasquez DO Apr 17, 2017 09:59
--- NOTE | 2017-04-17 12:47 | CONS ---
Date/Time of Note Date/Time of Note DATE: 04/17/17 TIME: 12:46 Consult Date/Type/Reason Admit Date/Time Apr 16, 2017 at 06:14 Initial Consult Date Type of Consultation: Pulmonary Subjective Patient remains stable. No new events. Objective Vital Signs Date Time Temp Pulse Resp B/P Pulse Ox O2 Delivery O2 Flow Rate FiO2 04/17/17 12:03 79 04/17/17 09:15 18 95 Nasal Cannula 4.0 04/17/17 07:45 98.8 140/63 Intake and Output 04/16/17 04/16/17 04/17/17 15:00 23:00 07:00 Intake Total 500 ml Output Total 700 ml Balance -200 ml Exam PHYSICAL EXAMINATION: GENERAL: Elderly-appearing lady, eyes open, supplemental O2. VITAL SIGNS: NECK: Supple. No JVD or lymphadenopathy. CARDIAC: S1, S2, no added sounds or murmurs. CHEST: Diminished air entry bilaterally. ABDOMEN: Soft, nontender. No guarding or rebound. EXTREMITIES: No cyanosis, clubbing, or edema. NEUROLOGIC: Generalized weakness. Results/Medications Result Diagram: 04/17/1714 04/17/1714 Results 24 hrs Laboratory Tests Test 04/17/17 06:14 04/17/17 07:00 White Blood Count 11.6 H Red Blood Count 3.67 L Hemoglobin 12.5 Hematocrit 37.4 Mean Corpuscular Volume 101.9 H Mean Corpuscular Hemoglobin 34.1 H Mean Corpuscular Hemoglobin Concent 33.4 Red Cell Distribution Width 13.5 Platelet Count 203 Mean Platelet Volume 10.7 H Neutrophils % 74.0 Lymphocytes % 12.2 L Monocytes % 10.4 Eosinophils % 2.3 Basophils % 0.6 Nucleated Red Blood Cells % 0.0 Neutrophils # 8.6 H Lymphocytes # 1.4 Monocytes # 1.2 H Eosinophils # 0.3 Basophils # 0.1 Nucleated Red Blood Cells # 0.0 Prothrombin Time 27.5 #H Prothrombin Time Ratio 2.1 INR International Normalized Ratio 2.48 Sodium Level 140 Potassium Level 4.2 Chloride Level 106 Carbon Dioxide Level 24 Anion Gap 14 Blood Urea Nitrogen 18 # Creatinine 0.34 L Glucose Level 96 Calcium Level 8.6 Phosphorus Level 3.1 Magnesium Level 1.9 Blood Gas Specimen Source Blood arterial Arterial Blood Date Drawn 04/17/2017 8:45:10 AM Arterial Blood pH (Temp corrected) 7.318 L Arterial Blood pCO2 (Temp correct) 46.4 H Arterial Blood pO2 (Temp corrected) 68.0 L Arterial Blood HCO3 23.3 Arterial Blood Base Excess -3.1 L Arterial Blood Oxygen Saturation 94.0 L Thomas Test ACCEPTAB Arterial Blood Gas Puncture Site Right Radial Arterial Blood Carboxyhemoglobin 0.4 Arterial Blood Methemoglobin 0.3 Blood Gas A-a O2 Differential 134.9 H Oxyhemoglobin Percent 93.3 Total Hemoglobin 13.9 Blood Gas Temperature 37.0 Blood Gas Modality NASAL CANNULA FiO2 36.0 Blood Gas Notified Whom DT Blood Gas Notified Time 04/17/2017 8:57:34 AM Medications Current Medications Acetaminophen/ Hydrocodone Bitart ([place] (5/325)) 1 tab Q6 PRN PO Pain Last administered on 04/17/17 09:58; Admin Dose 1 TAB; Start 04/16/17 at 07:30 Acetaminophen (Tylenol Tab) 1,000 mg Q6H PRN PO PAIN AND OR ELEVATED TEMP; Start 04/16/17 at 18:00 Alendronate Sodium (Fosamax) 70 mg Loya@0730 PO Last administered on 04/17/17 08:20; Admin Dose 70 MG; Start 04/17/17 at 07:30 Ascorbic Acid (Vitamin C) 500 mg DAILY PO Last administered on 04/17/17 08:39 ; Admin Dose 500 MG; Start 04/17/17 at 09:00 Bisacodyl (Dulcolax Supp) 10 mg Q24H PRN [place] CONSTIPATION; Start 04/16/17 at 18 :00 Cholecalciferol (Vitamin D) 1,000 unit DAILY PO Last administered on 09:58; Admin Dose 1,000 UNIT; Start 04/17/17 at 09:00 Citalopram Hydrobromide (Celexa) 20 mg DAILY PO Last administered on 08:39; Admin Dose 20 MG; Start 04/17/17 at 09:00 Docusate Sodium (Colace) 200 mg QHS PRN PO CONSTIPATION; Start 04/16/17 at 18: 00 Furosemide (Lasix) 10 mg DAILY PO Last administered on 04/17/17 08:40; Admin Dose 10 MG; Start 04/17/17 at 09:00 Gabapentin (Neurontin) 300 mg QID PO Last administered on 04/17/17 08:39; Admin Dose 300 MG; Start 04/16/17 at 21:00 Acetaminophen/ Hydrocodone Bitart ([place] (5/325)) 1 tab Q4 PRN PO SEVERE PAIN LEVEL 7-10 Last administered on 04/16/17 20:43; Admin Dose 1 TAB; Start 04/16 at 18:00 Magnesium Hydroxide (Milk Of Mag) 30 ml DAILY PRN PO CONSTIPATION; Start 04/16 at 18:00 Mineral Oil (Fleet Mineral Oil Enema) 133 ml DAILY PRN [place] CONSTIPATION; Start 04/16/17 at 18:00 Multivitamins Therapeutic (Theragran) 1 tab DAILY PO Last administered on 04/17 08:39; Admin Dose 1 TAB; Start 04/17/17 at 09:00 Potassium Chloride (Klor-Con 20) 20 meq DAILY PO Last administered on 08:39; Admin Dose 20 MEQ; Start 04/17/17 at 09:00 Tramadol HCl (Ultram) 50 mg BID PRN PO PAIN Last administered on 04/16/17 23: 05; Admin Dose 50 MG; Start 04/16/17 at 18:00 Calcium Carbonate (Oyster Shell Calcium) 1.25 gm DAILY PO Last administered on 04/17/17 08:39; Admin Dose 1.25 GM; Start 04/17/17 at 09:00 Lactobacillus Acidophilus/ Rhamnosus (Culturelle) 1 cap BID PO Last administered on 04/17/17 08:39; Admin Dose 1 CAP; Start 04/16/17 at 21:00 Guaifenesin/ Codeine Phosphate 5 ml 5 ml Q4H PRN PO cough Last administered on 04/17/17 08:38; Admin Dose 5 ML; Start 04/16/17 at 21:30 Cefepime HCl (Maxipime 2gm/50 ml (Pmx)) 50 ml @ 100 mls/hr Q12 IVPB Last administered on 04/17/17 08:39; Admin Dose 100 MLS/HR; Start 04/17/17 at 09: 00 Miscellaneous Information (Pending [facility] Order For Wound Care) This patient briggs... PRN PRN XX WOUND CARE; Start 04/17/17 at 01:30 Assessment/Plan Chief Complaint/Hosp Course IMPRESSION AND PLAN: 1. Hypoxemic respiratory failure, likely secondary to healthcare-associated pneumonia. 2. Possible aspiration component. 3. History of shoulder injury. PLAN: 1. Continue broad-spectrum antibiotics. 2. Supplemental O2. Decrease as tolerated 3. DVT and GI prophylaxis. Problems: FARIBA SINGH MD, [facility] Apr 17, 2017 12:47
--- NOTE | 2017-04-17 13:33 | CONS ---
Date/Time of Note Date/Time of Note DATE: 04/17/17 TIME: 13:33 Assessment/Plan Assessment/Plan Chief Complaint/Hosp Course ID PROGRESS NOTE CURRENT ABX=> * CEFEPIME #2 24H INTERVAL SUMMARY * Awake, alert & responsive, supplemental O2 via NC, VSS, no fevers * 04/16/17 Urine Cx URINE CULTURE Preliminary Organism 1 GRAM NEGATIVE DARYN COLONY COUNT >100,000 CFU/ml * CXR 04/17/17 IMPRESSION: * 1. Bibasilar discoid atelectasis and small bilateral pleural effusions. * 2. Mild cardiomegaly and atherosclerotic vascular disease * 3. Dextroscoliosis of the thoracic spine with degenerative changes as indicated above and bilateral glenohumeral and acromioclavicular Eyes: Normal Conjunctiva, anicteric ENT: Normal External Ears, Nose Neck: Supple, full ROM Resp: Equal chest rise bilaterally, without dyspnea on observation Cardio: Regular rate and rhythm Abd: Soft,NT Skin: No petechiae or rashes Back: Deferred Ext: No cyanosis, or edema Neur: Grossly intact, no focal deficits ID ASSESSMENT admit with: 1. SIRS w/low grade Temps 99.+, HR 100-104, Leukocytosis * 04/16/17 BCx (-)24H 2. UTI-> 04/16/17 URINE CULTURE Preliminary Organism 1 GRAM NEGATIVE DARYN COLONY COUNT >100,000 CFU/ml 3. Acute COPD exacerbation 4. Pneumonitis 5. Atypical chest pain 6. HTN w/Mild cardiomegaly and atherosclerotic vascular disease per CXR 7. 3Dextroscoliosis of the thoracic spine with degenerative changes as indicated above and bilateral glenohumeral and acromioclavicular INVASIVES: PIV ABX ALLERGIES: PCN CURRENT ABX=> *CEFEPIME ID RECOMMENDATIONS 1. Continue Cefepime & await final results of GNR UTI pathogen ID C&S pending. . Problems: Consultation Date/Type/Reason Admit Date/Time Apr 16, 2017 at 06:14 Initial Consult Date Type of Consultation: ID Exam/Review of Systems Vital Signs Vitals Vital Signs Date Time Temp Pulse Resp B/P Pulse Ox O2 Delivery O2 Flow Rate FiO2 04/17/17 12:03 79 04/17/17 09:15 18 95 Nasal Cannula 4.0 04/17/17 07:45 98.8 140/63 Intake and Output 04/16/17 04/16/17 04/17/17 15:00 23:00 07:00 Intake Total 500 ml Output Total 700 ml Balance -200 ml Results Result Diagram: 04/17/17 0614 04/17/17 0614 Results 24 hrs Laboratory Tests Test 04/17/17 06:14 04/17/17 07:00 White Blood Count 11.6 H Red Blood Count 3.67 L Hemoglobin 12.5 Hematocrit 37.4 Mean Corpuscular Volume 101.9 H Mean Corpuscular Hemoglobin 34.1 H Mean Corpuscular Hemoglobin Concent 33.4 Red Cell Distribution Width 13.5 Platelet Count 203 Mean Platelet Volume 10.7 H Neutrophils % 74.0 Lymphocytes % 12.2 L Monocytes % 10.4 Eosinophils % 2.3 Basophils % 0.6 Nucleated Red Blood Cells % 0.0 Neutrophils # 8.6 H Lymphocytes # 1.4 Monocytes # 1.2 H Eosinophils # 0.3 Basophils # 0.1 Nucleated Red Blood Cells # 0.0 Prothrombin Time 27.5 #H Prothrombin Time Ratio 2.1 INR International Normalized Ratio 2.48 Sodium Level 140 Potassium Level 4.2 Chloride Level 106 Carbon Dioxide Level 24 Anion Gap 14 Blood Urea Nitrogen 18 # Creatinine 0.34 L Glucose Level 96 Calcium Level 8.6 Phosphorus Level 3.1 Magnesium Level 1.9 Blood Gas Specimen Source Blood arterial Arterial Blood Date Drawn 04/17/2017 8:45:10 AM Arterial Blood pH (Temp corrected) 7.318 L Arterial Blood pCO2 (Temp correct) 46.4 H Arterial Blood pO2 (Temp corrected) 68.0 L Arterial Blood HCO3 23.3 Arterial Blood Base Excess -3.1 L Arterial Blood Oxygen Saturation 94.0 L Thomas Test ACCEPTAB Arterial Blood Gas Puncture Site Right Radial Arterial Blood Carboxyhemoglobin 0.4 Arterial Blood Methemoglobin 0.3 Blood Gas A-a O2 Differential 134.9 H Oxyhemoglobin Percent 93.3 Total Hemoglobin 13.9 Blood Gas Temperature 37.0 Blood Gas Modality NASAL CANNULA FiO2 36.0 Blood Gas Notified Whom DT Blood Gas Notified Time 04/17/2017 8:57:34 AM Medications Medications Current Medications Acetaminophen/ Hydrocodone Bitart ([place] (5/325)) 1 tab Q6 PRN PO Pain Last administered on 04/17/17t 09:58; Admin Dose 1 TAB; Start 04/16/17 at 07:30 Acetaminophen (Tylenol Tab) 1,000 mg Q6H PRN PO PAIN AND OR ELEVATED TEMP; Start 04/16/17 at 18:00 Alendronate Sodium (Fosamax) 70 mg Loya@0730 PO Last administered on 04/17/17 08:20; Admin Dose 70 MG; Start 04/17/17 at 07:30 Ascorbic Acid (Vitamin C) 500 mg DAILY PO Last administered on 04/17/17 08:39 ; Admin Dose 500 MG; Start 04/17/17 at 09:00 Bisacodyl (Dulcolax Supp) 10 mg Q24H PRN [place] CONSTIPATION; Start 04/16/17 at 18 :00 Cholecalciferol (Vitamin D) 1,000 unit DAILY PO Last administered on 09:58; Admin Dose 1,000 UNIT; Start 04/17/17 at 09:00 Citalopram Hydrobromide (Celexa) 20 mg DAILY PO Last administered on 08:39; Admin Dose 20 MG; Start 04/17/17 at 09:00 Docusate Sodium (Colace) 200 mg QHS PRN PO CONSTIPATION; Start 04/16/17 at 18: 00 Furosemide (Lasix) 10 mg DAILY PO Last administered on 04/17/17 08:40; Admin Dose 10 MG; Start 04/17/17 at 09:00 Gabapentin (Neurontin) 300 mg QID PO Last administered on 04/17/17 08:39; Admin Dose 300 MG; Start 04/16/17 at 21:00 Acetaminophen/ Hydrocodone Bitart ([place] (5/325)) 1 tab Q4 PRN PO SEVERE PAIN LEVEL 7-10 Last administered on 04/16/17 20:43; Admin Dose 1 TAB; Start 04/16 at 18:00 Magnesium Hydroxide (Milk Of Mag) 30 ml DAILY PRN PO CONSTIPATION; Start 04/16 at 18:00 Mineral Oil (Fleet Mineral Oil Enema) 133 ml DAILY PRN [place] CONSTIPATION; Start 04/16/17 at 18:00 Multivitamins Therapeutic (Theragran) 1 tab DAILY PO Last administered on 04/17 08:39; Admin Dose 1 TAB; Start 04/17/17 at 09:00 Potassium Chloride (Klor-Con 20) 20 meq DAILY PO Last administered on 08:39; Admin Dose 20 MEQ; Start 04/17/17 at 09:00 Tramadol HCl (Ultram) 50 mg BID PRN PO PAIN Last administered on 04/16/17 23: 05; Admin Dose 50 MG; Start 04/16/17 at 18:00 Calcium Carbonate (Oyster Shell Calcium) 1.25 gm DAILY PO Last administered on 04/17/17 08:39; Admin Dose 1.25 GM; Start 04/17/17 at 09:00 Lactobacillus Acidophilus/ Rhamnosus (Culturelle) 1 cap BID PO Last administered on 04/17/17 08:39; Admin Dose 1 CAP; Start 04/16/17 at 21:00 Guaifenesin/ Codeine Phosphate 5 ml 5 ml Q4H PRN PO cough Last administered on 04/17/17 08:38; Admin Dose 5 ML; Start 04/16/17 at 21:30 Cefepime HCl (Maxipime 2gm/50 ml (Pmx)) 50 ml @ 100 mls/hr Q12 IVPB Last administered on 04/17/17 08:39; Admin Dose 100 MLS/HR; Start 04/17/17 at 09: 00 Miscellaneous [facility] This patient briggs... PRN PRN XX WOUND CARE; Start 04/17/17 at 01:30 JULIÁN RIBERA NP Apr 17, 2017 13:33
--- NOTE | 2017-04-17 14:08 | PN ---
DATE: 04/17/2017 SUBJECTIVE: The patient is in serious but stable condition. No other events noted. OBJECTIVE: VITAL SIGNS: Blood pressure is 130/77, respirations 20, pulse 76, temperature 97.3. HEENT: Head is normocephalic. NECK: Supple. HEART: Regular rate. LUNGS: Show diminished breath sounds at base. ABDOMEN: Soft, nontender to palpation without rebound or guarding. EXTREMITIES: Negative for clubbing, cyanosis, no edema. DERMATOLOGIC: No rashes. MUSCULOSKELETAL: No joint effusions. NEUROLOGIC: No change in exam. MEDICATIONS: The patient's medications have been reviewed. LABORATORY DATA: Shows a white count 11.6, hemoglobin 12.5, platelet count is 203. Sodium 140, pot assium 4.2, BUN 18, creatinine 0.34. INR is 2.48. MEDICATIONS: The patient's medications have been reviewed. IMAGING: The patient's chest x-ray from 04/17/2017 shows atelectasis, small bilateral pleural effus ions. The patient's shoulder x-ray shows degenerative joint disease without acute fracture or dislo cation. ASSESSMENT AND PLAN: 1. Acute hypoxemic respiratory failure. Etiology is felt to be secondary to pneumonia, sepsis. Th e patient is clinically improving, currently on nasal cannula. Continue current antibiotic regimen and continue nebulizers. Follow up with pulmonary. 2. Sepsis secondary to urinary tract infection and possible pneumonia. Continue current antibiotic regimen. Appreciate infectious disease evaluation. Cultures have been reviewed. 3. Acute encephalopathy, etiology toxic metabolic. Mental status slowly improving. 4. Hypertension. Continue current blood pressure regimen. 5. History of arrhythmia, currently in sinus rhythm. Continue to monitor. Follow up with cardiolo gy. 6. History of deep venous thrombosis. The patient is on Coumadin. INR is currently at goal. Cont inue to monitor. 7. Anemia. Monitor hemoglobin and hematocrit levels. 8. Left hip wound, improving. Continue wound care. 9. Degenerative changes of the right hip and bilateral shoulders. X-ray showed no evidence of frac ture. Continue pain management. 10. Chronic pain syndrome. Continue current pain regimen. 11. Gastrointestinal and deep venous thrombosis prophylaxis. Dictated By: DARRICK LYNN/JOSE Conf#: [id number] DID#: [id number] CC: CHONG CASTILLO MD;*[facility]*
[2017-04-17] MEDS: NYSTATIN 30 GM POWDER BTL TOP SCH (20:50)
[2017-04-18] VITALS (11 sets, daily range): BP systolic 113–148; BP diastolic 64–75; PULSE 75–90; RESP 17–19
[2017-04-18] MEDS: ALBUTEROL/IPRATROPIUM (NEB) 3 ML AMP NEB PRN ×7 (01:14→23:00)
[2017-04-18] MEDS: GUAIFENESIN/CODEINE 5ML CUP PO PRN ×6 (01:43→22:17)
[2017-04-18] MEDS: HYDROCODONE/APAP (5/325) TAB PO PRN ×4 (01:44→18:34)
[2017-04-18 08:39] LABS: BASOPHIL # 0.1 10^3/ul (0.0-0.1); BASOPHILS % 0.8 % (0.0-2.0); EOSINOPHILS # 0.9 10^3/ul (0.0-0.5); EOSINOPHILS % 8.8 % (0.0-7.0); HEMATOCRIT 37.1 % (37.0-47.0); HEMOGLOBIN 12.3 g/dl (12.0-16.0); LYMPHOCYTES # 1.6 10^3/ul (0.8-2.9); LYMPHOCYTES % 15.1 % (15.0-51.0); MEAN CORPUSCULAR HEMOGLOBIN 33.7 pg (29.0-33.0); MEAN CORPUSCULAR HGB CONC 33.2 g/dl (32.0-37.0); MEAN CORPUSCULAR VOLUME 101.6 fl (82.0-101.0); MEAN PLATELET VOLUME 10.8 fl (7.4-10.4); MONOCYTE # 1.3 10^3/ul (0.3-0.9); MONOCYTES % 12.6 % (0.0-11.0); NEUTROPHIL # 6.6 10^3/ul (1.6-7.5); NEUTROPHILS % 62.5 % (39.0-77.0); PLATELET COUNT 205 10^3/UL (140-415); RED BLOOD COUNT 3.65 10^6/ul (4.20-5.40); RED CELL DISTRIBUTION WIDTH 13.6 % (11.5-14.5); WHITE BLOOD COUNT 10.6 10^3/ul (4.8-10.8)
--- NOTE | 2017-04-18 08:56 | RADRPT ---
Echocardiogram Report Patient Name: RUPA LIRA Gender: Female Date: 1940 Study Date: 17-Apr-2017 Industrial Radiographer: SILVIA Location: [id number] Ref. Physician: JOYCE RIVERA Quality: Good Procedures: Transthoracic echocardiogram with complete 2D, M-Mode, and doppler examination. Indications: Chest Pain. 2D/M Mode Doppler Measurement Value Normal Ranges Measurement Value Normal Ranges AoR Diam MM 3.1 cm ALYSSA Vmax 2.0 cm2 LA/Ao MM 1.1 ALYSSA VTI 2.6 cm2 LA Dimen MM 3.3 cm AV Mean Sixto 1.4 m/sec LVIDd 2D 4.7 3.5 - 5.6 cm AV Mean PG 8.0 mmHg LVIDs 2D 3.4 2.1 - 4.1 cm AV Peak Sixto 1.8 m/sec FS 2D 29.0 % AV Peak PG 13.0 mmHg LVPWd 2D 1.1 0.6 - 1.1 cm AV VTI 26.7 cm IVSd 2D 1.1 0.6 - 1.1 cm LVOT Mean Sixto 0.9 m/sec IVS/LVPW 2D 0.9 LVOT Mean PG 3.0 mmHg EDV 2D 106.0 cm3 LVOT Peak Sixto 1.2 m/sec ESV 2D 37.9 cm3 LVOT Peak PG 6.0 mmHg EF 2D 55.0 50.0 - 65.0 % LVOT VTI 22.4 cm LVOT Diam 2.0 cm MV E Peak Sixto 0.9 m/sec LVOT Area 3.1 cm2 MV A Peak Sixto 1.2 m/sec MV E/A 0.7 MV Decel Time 271 msec MV E/A 0.7 TR Peak Sixto 2.8 m/sec TR Peak PG 32.0 mmHg RVSP 40.0 mmHg RA Pressure 8.0 Findings Left Ventricle: Normal left ventricular systolic function. Normal left ventricular cavity size. Normal left ventricular wall thickness. Ejection fraction is visually estimated at 55 %. Tissue Doppler/Mitral Doppler indices are consistent with impaired relaxation (Stage I diastolic dysfunction). Right Ventricle: Normal right ventricular size. Normal right ventricular systolic function. Left Atrium: The left atrium is normal in size. Right Atrium: The right atrium is normal in size. Mitral Valve: Normal appearance of the mitral valve. Mild mitral annular calcification. Trace mitral regurgitation. Aortic Valve: Normal appearance of the aortic valve. No significant aortic stenosis with trivial insufficiency. Tricuspid Valve: Normal appearance of the tricuspid valve. Estimated peak PA systolic pressure 35 mmHg. Pulmonic Valve: Normal pulmonic valve appearance. Pericardium: Normal pericardium with no significant pericardial effusion. Aorta: Normal aortic root. IVC: Dilated IVC with respiratory collapse consistent with elevated right atrial pressure. Conclusions 1.Normal left ventricular systolic function. Normal left ventricular cavity size. Normal left ventricular wall thickness. Ejection fraction is visually estimated at 55 %. Tissue Doppler/Mitral Doppler indices are consistent with impaired relaxation (Stage I diastolic dysfunction). 2.Normal right ventricular size. Normal right ventricular systolic function. 3.The left atrium is normal in size. 4.The right atrium is normal in size. 5.Normal appearance of the mitral valve. Mild mitral annular calcification. Trace mitral regurgitation. 6.Normal appearance of the aortic valve. No significant aortic stenosis with trivial insufficiency. 7.Normal appearance of the tricuspid valve. Estimated peak PA systolic pressure 35 mmHg. 8.Normal pericardium with no significant pericardial effusion. 9.Dilated IVC with respiratory collapse consistent with elevated right atrial pressure. Electronically Signed By: Junior Cook 18-Apr-2017 08:56:10 -0800 Patient Name: RUPA LIRA Study Date: 17-Apr-2017 [id number]
[2017-04-18 08:58] LABS: CALCIUM 9.2 mg/dl (8.4-10.2); CREATININE 0.35 mg/dl (0.44-1.00); MAGNESIUM 1.7 mg/dl (1.7-2.5); PHOSPHORUS 2.7 mg/dl (2.5-4.9); POTASSIUM 4.3 mmol/L (3.5-5.1)
[2017-04-18] MEDS: LACTOBACILLUS RHAMNOSUS CAP PO SCH ×2 (10:09→21:00)
[2017-04-18] MEDS: CEFEPIME 2GM/50 ML (PMX) 50 ML IVPB SCH ×2 (10:09→22:16)
[2017-04-18] MEDS: MULTIVITAMINS THERAPEUTIC TAB PO SCH (10:10)
[2017-04-18] MEDS: CALCIUM CARBONATE 1.25 GM TAB PO SCH (10:10)
[2017-04-18] MEDS: POTASSIUM CHLORIDE (SR) 20 MEQ TAB PO SCH (10:10)
[2017-04-18] MEDS: GABAPENTIN 300 MG CAP PO SCH ×4 (10:10→22:17)
[2017-04-18] MEDS: ASCORBIC ACID 500 MG TAB PO SCH (10:10)
[2017-04-18] MEDS: FUROSEMIDE 20 MG TAB PO SCH (10:10)
[2017-04-18] MEDS: CITALOPRAM 20 MG TAB PO SCH (10:11)
[2017-04-18] MEDS: NYSTATIN 30 GM POWDER BTL TOP SCH ×2 (10:12→22:18)
[2017-04-18 10:44] LABS: INR 2.08; PROTIME 23.9 Sec (11.9-14.9); PT RATIO 1.9
--- NOTE | 2017-04-18 11:14 | CONS ---
Date/Time of Note Date/Time of Note DATE: 04/18/17 TIME: 11:12 Assessment/Plan Assessment/Plan Additional Assessment/Plan Assessment and recommendations; 1. Patient admitted with bronchopneumonia with persistent significant symptoms. Continue current treatment. Add Levaquin as well as Solu-Medrol. Consultation Date/Type/Reason Admit Date/Time Apr 16, 2017 at 06:14 Initial Consult Date Type of Consultation: Pulmonary/critical care 24 HR Interval Summary Free Text/Dictation Patient's condition remains stable, however patient still complaining of significant chest congestion and coughing episodes. Denies any chest pain, fever, chills. General exam; elderly woman, awake, currently in no distress. Exam/Review of Systems Vital Signs Vitals Vital Signs Date Time Temp Pulse Resp B/P Pulse Ox O2 Delivery O2 Flow Rate FiO2 04/18/17 08:24 78 24 95 Nasal Cannula 3.0 04/18/17 08:02 97.8 145/75 Intake and Output 04/17/17 04/17/17 04/18/17 15:00 23:00 07:00 Intake Total 300 ml Output Total 450 ml Balance -150 ml Exam HEENT exam; supple neck, no JVD. No lymphadenopathy. Midline trachea. No thyromegaly. Patient has fair dentition. Chest exam; scattered crackles bilaterally. S1-S2 audible, no murmurs. Regular rhythm. Abdomen exam; soft, nontender. No organomegaly. Bowel sounds audible. Extremity exam; no edema. ICE CARVER exam; no focal deficit. Results Result Diagram: 04/18/17 0732 04/18/17 0732 Results 24 hrs Laboratory Tests Test 04/18/17 07:32 04/18/17 09:05 White Blood Count 10.6 Red Blood Count 3.65 L Hemoglobin 12.3 Hematocrit 37.1 Mean Corpuscular Volume 101.6 H Mean Corpuscular Hemoglobin 33.7 H Mean Corpuscular Hemoglobin Concent 33.2 Red Cell Distribution Width 13.6 Platelet Count 205 Mean Platelet Volume 10.8 H Neutrophils % 62.5 Lymphocytes % 15.1 Monocytes % 12.6 H Eosinophils % 8.8 H Basophils % 0.8 Nucleated Red Blood Cells % 0.0 Neutrophils # 6.6 Lymphocytes # 1.6 Monocytes # 1.3 H Eosinophils # 0.9 H Basophils # 0.1 Nucleated Red Blood Cells # 0.0 Sodium Level 141 Potassium Level 4.3 Chloride Level 105 Carbon Dioxide Level 27 Anion Gap 13 Blood Urea Nitrogen 18 Creatinine 0.35 L Glucose Level 108 Calcium Level 9.2 Phosphorus Level 2.7 Magnesium Level 1.7 Prothrombin Time 23.9 H Prothrombin Time Ratio 1.9 INR International Normalized Ratio 2.08 Medications Medications Current Medications Acetaminophen/ Hydrocodone Bitart ([place] (5/325)) 1 tab Q6 PRN PO Pain Last administered on 04/18/17 01:44; Admin Dose 1 TAB; Start 04/16/17 at 07:30 Acetaminophen (Tylenol Tab) 1,000 mg Q6H PRN PO PAIN AND OR ELEVATED TEMP; Start 04/16/17 at 18:00 Alendronate Sodium (Fosamax) 70 mg Loya@0730 PO Last administered on 04/17/17 08:20; Admin Dose 70 MG; Start 04/17/17 at 07:30 Ascorbic Acid (Vitamin C) 500 mg DAILY PO Last administered on 04/18/17 10:10 ; Admin Dose 500 MG; Start 04/17/17 at 09:00 Bisacodyl (Dulcolax Supp) 10 mg Q24H PRN [place] CONSTIPATION; Start 04/16/17 at 18 :00 Cholecalciferol (Vitamin D) 1,000 unit DAILY PO Last administered on 09:58; Admin Dose 1,000 UNIT; Start 04/17/17 at 09:00 Citalopram Hydrobromide (Celexa) 20 mg DAILY PO Last administered on 10:11; Admin Dose 20 MG; Start 04/17/17 at 09:00 Docusate Sodium (Colace) 200 mg QHS PRN PO CONSTIPATION; Start 04/16/17 at 18: 00 Furosemide (Lasix) 10 mg DAILY PO Last administered on 04/18/17 10:10; Admin Dose 10 MG; Start 04/17/17 at 09:00 Gabapentin (Neurontin) 300 mg QID PO Last administered on 04/18/17 10:10; Admin Dose 300 MG; Start 04/16/17 at 21:00 Acetaminophen/ Hydrocodone Bitart ([place] (5/325)) 1 tab Q4 PRN PO SEVERE PAIN LEVEL 7-10 Last administered on 04/18/17 10:11; Admin Dose 1 TAB; Start 04/16 at 18:00 Magnesium Hydroxide (Milk Of Mag) 30 ml DAILY PRN PO CONSTIPATION; Start 04/16 at 18:00 Mineral Oil (Fleet Mineral Oil Enema) 133 ml DAILY PRN [place] CONSTIPATION; Start 04/16/17 at 18:00 Multivitamins Therapeutic (Theragran) 1 tab DAILY PO Last administered on 04/18 10:10; Admin Dose 1 TAB; Start 04/17/17 at 09:00 Potassium Chloride (Klor-Con 20) 20 meq DAILY PO Last administered on 10:10; Admin Dose 20 MEQ; Start 04/17/17 at 09:00 Tramadol HCl (Ultram) 50 mg BID PRN PO PAIN Last administered on 04/16/17 23: 05; Admin Dose 50 MG; Start 04/16/17 at 18:00 Calcium Carbonate (Oyster Shell Calcium) 1.25 gm DAILY PO Last administered on 04/18/17 10:10; Admin Dose 1.25 GM; Start 04/17/17 at 09:00 Lactobacillus Acidophilus/ Rhamnosus (Culturelle) 1 cap BID PO Last administered on 04/18/17 10:09; Admin Dose 1 CAP; Start 04/16/17 at 21:00 Guaifenesin/ Codeine Phosphate 5 ml 5 ml Q4H PRN PO cough Last administered on 04/18/17 10:21; Admin Dose 5 ML; Start 04/16/17 at 21:30 Cefepime HCl (Maxipime 2gm/50 ml (Pmx)) 50 ml @ 100 mls/hr Q12 IVPB Last administered on 04/18/17 10:09; Admin Dose 100 MLS/HR; Start 04/17/17 at 09: 00 Miscellaneous Information (Pending Santyl Order For Wound Care) This patient briggs... PRN PRN XX WOUND CARE; Start 04/17/17 at 01:30 Nystatin (Nystatin Powder) 1 applic BID TOP Last administered on 04/18/17 10: 12; Admin Dose 1 APPLIC; Start 04/17/17 at 21:00 Pantoprazole (Protonix Tab) 40 mg DAILY@06 PO ; Start 04/19/17 at 06:00 ALEJO FERGUSON Apr 18, 2017 11:14
--- NOTE | 2017-04-18 11:18 | PN ---
DATE: 04/18/2017 SUBJECTIVE: The patient is stable. No events overnight. No fevers, chills, nausea, vomiting. OBJECTIVE: VITAL SIGNS: Blood pressure is 145/75, pulse 78, respirations 24, temperature 97.8. HEENT: Head is normocephalic. NECK: Supple. HEART: Regular rate. LUNGS: Show diminished breath sounds at base. ABDOMEN: Soft, nontender to palpation without rebound or guarding. EXTREMITIES: Negative for clubbing, cyanosis, no edema. DERMATOLOGIC: No rashes. MUSCULOSKELETAL: No joint effusions. NEUROLOGIC: No change in exam. MEDICATIONS: The patient's medications have been reviewed. LABORATORY DATA: Shows a white count of 10.6, hemoglobin 12.3, hematocrit 37.1, platelet count is 2 05. The patient's urine cultures are positive for Proteus. ASSESSMENT AND PLAN: 1. Acute hypoxemic respiratory failure. Etiology secondary to healthcare-associated pneumonia. Th e patient is clinically improving. Continue nasal cannula, continue nebulizers. Follow up with pul monary for further recommendations. 2. Sepsis secondary to healthcare-associated pneumonia, UTIs. Continue current antibiotic regimen. Appreciate ID evaluation. Cultures have been reviewed. 3. Acute encephalopathy. Etiology is toxic metabolic. Mental status is slowly improving. 4. Hypertension. Continue current blood pressure regimen. 5. History of arrhythmia, currently in sinus rhythm, stable. Continue to monitor. Follow up with cardiology. 6. History of deep venous thrombosis. The patient was previously on Coumadin. Last INR was at [facility]. We will monitor INR, adjust Coumadin levels as needed. 7. Anemia. Monitor hemoglobin and hematocrit levels. 8. Left hip wound, improved. Continue local wound care. 9. Chronic pain syndrome. Continue current pain regimen. 10. Gastrointestinal and deep venous thrombosis prophylaxis. Dictated By: DARRICK BROWNE DO NR/NTS Conf#: [id number] DID#: [id number] CC: CHONG CASTILLO MD;*EndCC*
[2017-04-18] MEDS: LEVOFLOXACIN 500MG/D5W (PMX) 100 ML IVPB SCH (12:09)
[2017-04-18] MEDS: METHYLPREDNISOLONE 40 MG INJ IV SCH ×2 (14:32→22:17)
--- NOTE | 2017-04-18 19:52 | CONS ---
Date/Time of Note Date/Time of Note DATE: 04/18/17 TIME: 19:47 Consult Date/Type/Reason Admit Date/Time Apr 16, 2017 at 06:14 Initial Consult Date Type of Consultation: CV Subjective Cardiology follow-up progress note: Subjective: Discussed with staff and rhythm strip was reviewed. Patient remains sinus rhythm. Patient denies any left-sided chest pain or pressure to me. She stated her breathing is much better today. She is still coughing though has shortness of breath. She denies any palpitation to me. Objective: General: no acute distress HEENT: NC/AT. pupils are equal. round. NECK: NO JVD. no stridor. CV: RRR. systolic murmur; no gallop or rubs. PULM: + Diffuse rhonchi. GI: SOFT, NT, ND, no rebound or guarding Extremity: + B/L LE edema. no clubbing. neuro: awake and alert, OX3. Psych: calm and pleasant rectal: deferred : Deferred ECHO EF 55% Objective Vital Signs Date Time Temp Pulse Resp B/P Pulse Ox O2 Delivery O2 Flow Rate FiO2 04/18/17 19:10 85 20 95 Nasal Cannula 3.0 04/18/17 15:48 98.6 127/64 Intake and Output 04/17/17 04/17/17 04/18/17 15:00 23:00 07:00 Intake Total 300 ml Output Total 450 ml Balance -150 ml Results/Medications Result Diagram: 04/18/17 0732 04/18/17 0732 Results 24 hrs Laboratory Tests Test 04/18/17 07:32 04/18/17 09:05 White Blood Count 10.6 Red Blood Count 3.65 L Hemoglobin 12.3 Hematocrit 37.1 Mean Corpuscular Volume 101.6 H Mean Corpuscular Hemoglobin 33.7 H Mean Corpuscular Hemoglobin Concent 33.2 Red Cell Distribution Width 13.6 Platelet Count 205 Mean Platelet Volume 10.8 H Neutrophils % 62.5 Lymphocytes % 15.1 Monocytes % 12.6 H Eosinophils % 8.8 H Basophils % 0.8 Nucleated Red Blood Cells % 0.0 Neutrophils # 6.6 Lymphocytes # 1.6 Monocytes # 1.3 H Eosinophils # 0.9 H Basophils # 0.1 Nucleated Red Blood Cells # 0.0 Sodium Level 141 Potassium Level 4.3 Chloride Level 105 Carbon Dioxide Level 27 Anion Gap 13 Blood Urea Nitrogen 18 Creatinine 0.35 L Glucose Level 108 Calcium Level 9.2 Phosphorus Level 2.7 Magnesium Level 1.7 Prothrombin Time 23.9 H Prothrombin Time Ratio 1.9 INR International Normalized Ratio 2.08 Medications Current Medications Acetaminophen/ Hydrocodone Bitart ([place] (5/325)) 1 tab Q6 PRN PO Pain Last administered on 04/18/17 18:34; Admin Dose 1 TAB; Start 04/16/17 at 07:30 Acetaminophen (Tylenol Tab) 1,000 mg Q6H PRN PO PAIN AND OR ELEVATED TEMP; Start 04/16/17 at 18:00 Alendronate Sodium (Fosamax) 70 mg Loya@0730 PO Last administered on 04/17/17 08:20; Admin Dose 70 MG; Start 04/17/17 at 07:30 Ascorbic Acid (Vitamin C) 500 mg DAILY PO Last administered on 04/18/17 10:10 ; Admin Dose 500 MG; Start 04/17/17 at 09:00 Bisacodyl (Dulcolax Supp) 10 mg Q24H PRN [place] CONSTIPATION; Start 04/16/17 at 18 :00 Cholecalciferol (Vitamin D) 1,000 unit DAILY PO Last administered on 09:58; Admin Dose 1,000 UNIT; Start 04/17/17 at 09:00 Citalopram Hydrobromide (Celexa) 20 mg DAILY PO Last administered on 10:11; Admin Dose 20 MG; Start 04/17/17 at 09:00 Docusate Sodium (Colace) 200 mg QHS PRN PO CONSTIPATION; Start 04/16/17 at 18: 00 Furosemide (Lasix) 10 mg DAILY PO Last administered on 04/18/17 10:10; Admin Dose 10 MG; Start 04/17/17 at 09:00 Gabapentin (Neurontin) 300 mg QID PO Last administered on 04/18/17 17:04; Admin Dose 300 MG; Start 04/16/17 at 21:00 Acetaminophen/ Hydrocodone Bitart ([place] (5/325)) 1 tab Q4 PRN PO SEVERE PAIN LEVEL 7-10 Last administered on 04/18/17 14:32; Admin Dose 1 TAB; Start 04/16 at 18:00 Magnesium Hydroxide (Milk Of Mag) 30 ml DAILY PRN PO CONSTIPATION; Start 04/16 at 18:00 Mineral Oil (Fleet Mineral Oil Enema) 133 ml DAILY PRN [place] CONSTIPATION; Start 04/16/17 at 18:00 Multivitamins Therapeutic (Theragran) 1 tab DAILY PO Last administered on 04/18 10:10; Admin Dose 1 TAB; Start 04/17/17 at 09:00 Potassium Chloride (Klor-Con 20) 20 meq DAILY PO Last administered on 10:10; Admin Dose 20 MEQ; Start 04/17/17 at 09:00 Tramadol HCl (Ultram) 50 mg BID PRN PO PAIN Last administered on 04/16/17 23: 05; Admin Dose 50 MG; Start 04/16/17 at 18:00 Calcium Carbonate (Oyster Shell Calcium) 1.25 gm DAILY PO Last administered on 04/18/17 10:10; Admin Dose 1.25 GM; Start 04/17/17 at 09:00 Lactobacillus Acidophilus/ Rhamnosus (Culturelle) 1 cap BID PO Last administered on 04/18/17 10:09; Admin Dose 1 CAP; Start 04/16/17 at 21:00 Guaifenesin/ Codeine Phosphate 5 ml 5 ml Q4H PRN PO cough Last administered on 04/18/17 18:34; Admin Dose 5 ML; Start 04/16/17 at 21:30 Cefepime HCl (Maxipime 2gm/50 ml (Pmx)) 50 ml @ 100 mls/hr Q12 IVPB Last administered on 04/18/17 10:09; Admin Dose 100 MLS/HR; Start 04/17/17 at 09: 00 Miscellaneous Information (Pending Santyl Order For Wound Care) This patient briggs... PRN PRN XX WOUND CARE; Start 04/17/17 at 01:30 Nystatin (Nystatin Powder) 1 applic BID TOP Last administered on 04/18/17 10: 12; Admin Dose 1 APPLIC; Start 04/17/17 at 21:00 Pantoprazole 40 mg 40 mg DAILY@06 PO ; Start 04/19/17 at 06:00 Levofloxacin/ Dextrose (Levaquin 500mg/ D5W 100 ml (Pmx)) 100 ml @ 100 mls/hr Q24H IVPB Last administered on 04/18/17 12:09; Admin Dose 100 MLS/HR; Start 04/18/17 at 11:30 Methylprednisolone Sodium Succinate (Solu-Medrol) 40 mg Q8 IV Last administered on 04/18/17 14:32; Admin Dose 40 MG; Start 04/18/17 at 14:00 Assessment/Plan Chief Complaint/Hosp Course 1. Pneumonia/bronchitis. 2. Hypoxemic respiratory failure secondary to above. 3. History of lower extremity DVT. 4. Lower extremity edema 5. History of arrhythmia : currently appear to be stable though. Recommendations: Continue with respiratory care. Low-dose diuretics will be continued. Antibiotic and pulmonary care as per pulmonary team and internal medicine. I will continue to follow her on telemetry. Coumadin is being adjusted by IM . CHECK Daily INR Thank you for his referral. I will continue to follow along with you. KIZZY RADER MD [facility]. Problems: KIZZY RADER MD Apr 18, 2017 19:52
[2017-04-18] MEDS ORDERED: ACETYLCYSTEINE 20% 4 ML VIAL NEB SCH (21:00)
[2017-04-19] VITALS (11 sets, daily range): BP systolic 119–134; BP diastolic 62–69; PULSE 72–85; RESP 16–18
[2017-04-19] MEDS: HYDROCODONE/APAP (5/325) TAB PO PRN ×5 (00:31→21:41)
--- NOTE | 2017-04-19 02:00 | RADRPT ---
PROCEDURE: Ultrasound examination of bilateral lower extremities veins with Doppler. CLINICAL INDICATION: Leg pain and swelling. TECHNIQUE: Multiple sonographic images of bilateral lower extremity venous systems were performed with aleman scale and color Doppler. COMPARISON: 01/05/2014. FINDINGS: Bilateral common femoral, superficial femoral and popliteal veins demonstrate normal color flow, wav eforms, compression and response to augmentation. There is no evidence of deep venous thrombosis. IMPRESSION: No evidence of deep venous thrombosis within bilateral lower extremities. .Kyle Sosa MD, Date Time Electronically viewed and signed by .Kyle Sosa MD, on 04/19/2017 02:00 .T/
[2017-04-19] MEDS: traMADol 50 MG TAB PO PRN (02:34)
[2017-04-19] MEDS: ALBUTEROL/IPRATROPIUM (NEB) 3 ML AMP NEB PRN ×4 (04:20→20:07)
--- NOTE | 2017-04-19 06:33 | PN ---
DATE: 04/18/2017 INFECTIOUS DISEASE PROGRESS NOTE SUBJECTIVE: No acute changes overnight. The patient is alert, short of breath, in no distress, af ebrile. WBC 10.6, platelets 205, no shift, no bands. BUN 18, creatinine 0.35. MICROBIOLOGY: Blood culture negative. Urine culture grew Proteus mirabilis susceptible to Zosyn, t obramycin, cefepime, also amikacin. ANTIMICROBIALS: The patient is on levofloxacin and cefepime. She is also getting steroids. DIAGNOSTICS: Chest x-ray on admission revealed bibasilar discoid atelectasis and small bilateral pl eural effusions. INDWELLINGS: Tang catheter. PHYSICAL EXAMINATION: GENERAL: Obese, chronically ill-appearing, elderly woman who is awake, in no distress. HEENT: Head atraumatic, normocephalic. Sclerae anicteric. Buccal mucosa dry. NECK: Supple. CHEST: Rise symmetrical. Breath sounds with bilateral rhonchi and expiratory wheezes. HEART: S1, S2. ABDOMEN: Soft. Bowel tones present. EXTREMITIES: Bilateral lower extremities wasted. Chronic venostasis and edema. ASSESSMENT: 1. Acute hypoxemic respiratory failure secondary to healthcare-associated pneumonia and bilateral p leural effusions. 2. Proteus mirabilis urinary tract infection. 3. Anemia. 4. Hypertension. 5. Obesity. PLAN: Patient remains stable. She is being seen by pulmonary team. She is on steroids. Cardiolog y on case as well. Continue present care, antibiotics. Dictated By: MIRTHA SUERO [employer] SUPERVISOR for STEPHANIE LANIER/NTS Conf#: [id number] DID#: [id number]
[2017-04-19] MEDS: PANTOPRAZOLE (EC) 40 MG TAB PO SCH (06:45)
[2017-04-19] MEDS: METHYLPREDNISOLONE 40 MG INJ IV SCH ×3 (06:45→21:41)
[2017-04-19] MEDS: GUAIFENESIN/CODEINE 5ML CUP PO PRN ×4 (06:46→21:41)
[2017-04-19 09:08] LABS: BASOPHILS % 0.2 % (0.0-2.0); HEMATOCRIT 36.9 % (37.0-47.0); HEMOGLOBIN 12.3 g/dl (12.0-16.0); LYMPHOCYTES # 0.6 10^3/ul (0.8-2.9); MEAN CORPUSCULAR HEMOGLOBIN 33.4 pg (29.0-33.0); MEAN CORPUSCULAR HGB CONC 33.3 g/dl (32.0-37.0); MEAN CORPUSCULAR VOLUME 100.3 fl (82.0-101.0); MEAN PLATELET VOLUME 10.6 fl (7.4-10.4); MONOCYTE # 0.4 10^3/ul (0.3-0.9); MONOCYTES % 5.7 % (0.0-11.0); NEUTROPHIL # 5.2 10^3/ul (1.6-7.5); NEUTROPHILS % 83.5 % (39.0-77.0); PLATELET COUNT 203 10^3/UL (140-415); RED BLOOD COUNT 3.68 10^6/ul (4.20-5.40); RED CELL DISTRIBUTION WIDTH 13.4 % (11.5-14.5); WHITE BLOOD COUNT 6.2 10^3/ul (4.8-10.8)
--- NOTE | 2017-04-19 09:28 | CONS ---
Date/Time of Note Date/Time of Note DATE: 04/19/17 TIME: 09:26 Consult Date/Type/Reason Admit Date/Time Apr 16, 2017 at 06:14 Type of Consultation: CV Subjective Cardiology follow-up progress note: Subjective: Discussed with staff and rhythm strip was reviewed. Patient remains sinus rhythm. d/w Dr Estevez Patient denies any left-sided chest pain or pressure to me. She is still coughing though has shortness of breath. She denies any palpitation to me. Objective: General: no acute distress HEENT: NC/AT. pupils are equal. round. NECK: NO JVD. no stridor. CV: RRR. systolic murmur; no gallop or rubs. PULM: + Diffuse rhonchi. GI: SOFT, NT, ND, no rebound or guarding Extremity: + B/L LE edema. no clubbing. neuro: awake and alert, OX3. Psych: calm and pleasant rectal: deferred : Deferred ECHO EF 55% U/S LE : no DVT Objective Vital Signs Date Time Temp Pulse Resp B/P Pulse Ox O2 Delivery O2 Flow Rate FiO2 04/19/17 09:19 98.4 79 17 134/67 90 04/19/17 04:23 Nasal Cannula 3.0 Intake and Output 04/18/17 04/18/17 04/19/17 15:00 23:00 07:00 Intake Total 510 ml 530 ml Output Total 1700 ml 700 ml Balance -1190 ml -170 ml Results/Medications Result Diagram: 04/19/17 0824 04/18/17 0732 Results 24 hrs Laboratory Tests Test 04/19/17 08:24 White Blood Count 6.2 # Red Blood Count 3.68 L Hemoglobin 12.3 Hematocrit 36.9 L Mean Corpuscular Volume 100.3 Mean Corpuscular Hemoglobin 33.4 H Mean Corpuscular Hemoglobin Concent 33.3 Red Cell Distribution Width 13.4 Platelet Count 203 Mean Platelet Volume 10.6 H Neutrophils % 83.5 H Lymphocytes % 10.0 L Monocytes % 5.7 Eosinophils % 0.0 Basophils % 0.2 Nucleated Red Blood Cells % 0.0 Neutrophils # 5.2 Lymphocytes # 0.6 L Monocytes # 0.4 Eosinophils # 0.0 Basophils # 0.0 Nucleated Red Blood Cells # 0.0 Medications Current Medications Acetaminophen/ Hydrocodone Bitart ([place] (5/325)) 1 tab Q6 PRN PO Pain Last administered on 04/19/17 06:46; Admin Dose 1 TAB; Start 04/16/17 at 07:30 Acetaminophen (Tylenol Tab) 1,000 mg Q6H PRN PO PAIN AND OR ELEVATED TEMP; Start 04/16/17 at 18:00 Alendronate Sodium (Fosamax) 70 mg Loya@0730 PO Last administered on 04/17/17 08:20; Admin Dose 70 MG; Start 04/17/17 at 07:30 Ascorbic Acid (Vitamin C) 500 mg DAILY PO Last administered on 04/18/17 10:10 ; Admin Dose 500 MG; Start 04/17/17 at 09:00 Bisacodyl (Dulcolax Supp) 10 mg Q24H PRN [place] CONSTIPATION; Start 04/16/17 at 18 :00 Cholecalciferol (Vitamin D) 1,000 unit DAILY PO Last administered on 09:58; Admin Dose 1,000 UNIT; Start 04/17/17 at 09:00 Citalopram Hydrobromide (Celexa) 20 mg DAILY PO Last administered on 10:11; Admin Dose 20 MG; Start 04/17/17 at 09:00 Docusate Sodium (Colace) 200 mg QHS PRN PO CONSTIPATION; Start 04/16/17 at 18: 00 Furosemide (Lasix) 10 mg DAILY PO Last administered on 04/18/17 10:10; Admin Dose 10 MG; Start 04/17/17 at 09:00 Gabapentin (Neurontin) 300 mg QID PO Last administered on 04/18/17 22:17; Admin Dose 300 MG; Start 04/16/17 at 21:00 Acetaminophen/ Hydrocodone Bitart ([place] (5/325)) 1 tab Q4 PRN PO SEVERE PAIN LEVEL 7-10 Last administered on 04/18/17 14:32; Admin Dose 1 TAB; Start 04/16 at 18:00 Magnesium Hydroxide (Milk Of Mag) 30 ml DAILY PRN PO CONSTIPATION; Start 04/16 at 18:00 Mineral Oil (Fleet Mineral Oil Enema) 133 ml DAILY PRN [place] CONSTIPATION; Start 04/16/17 at 18:00 Multivitamins Therapeutic (Theragran) 1 tab DAILY PO Last administered on 04/18 10:10; Admin Dose 1 TAB; Start 04/17/17 at 09:00 Potassium Chloride (Klor-Con 20) 20 meq DAILY PO Last administered on 10:10; Admin Dose 20 MEQ; Start 04/17/17 at 09:00 Tramadol HCl (Ultram) 50 mg BID PRN PO PAIN Last administered on 04/19/17 02: 34; Admin Dose 50 MG; Start 04/16/17 at 18:00 Calcium Carbonate (Oyster Shell Calcium) 1.25 gm DAILY PO Last administered on 04/18/17 10:10; Admin Dose 1.25 GM; Start 04/17/17 at 09:00 Lactobacillus Acidophilus/ Rhamnosus (Culturelle) 1 cap BID PO Last administered on 04/18/17 21:00; Admin Dose 1 CAP; Start 04/16/17 at 21:00 Guaifenesin/ Codeine Phosphate 5 ml 5 ml Q4H PRN PO cough Last administered on 04/19/17 06:46; Admin Dose 5 ML; Start 04/16/17 at 21:30 Cefepime HCl (Maxipime 2gm/50 ml (Pmx)) 50 ml @ 100 mls/hr Q12 IVPB Last administered on 04/18/17 22:16; Admin Dose 100 MLS/HR; Start 04/17/17 at 09: 00 Miscellaneous Information (Pending Santyl Order For Wound Care) This patient briggs... PRN PRN XX WOUND CARE; Start 04/17/17 at 01:30 Nystatin (Nystatin Powder) 1 applic BID TOP Last administered on 04/18/17 22: 18; Admin Dose 1 APPLIC; Start 04/17/17 at 21:00 Pantoprazole 40 mg 40 mg DAILY@06 PO Last administered on 04/19/17 06:45; Admin Dose 40 MG; Start 04/19/17 at 06:00 Levofloxacin/ Dextrose (Levaquin 500mg/ D5W 100 ml (Pmx)) 100 ml @ 100 mls/hr Q24H IVPB Last administered on 04/18/17 12:09; Admin Dose 100 MLS/HR; Start 04/18/17 at 11:30 Methylprednisolone Sodium Succinate (Solu-Medrol) 40 mg Q8 IV Last administered on 04/19/17t 06:45; Admin Dose 40 MG; Start 04/18/17 at 14:00 Assessment/Plan Chief Complaint/Hosp Course 1. Pneumonia/bronchitis. 2. Hypoxemic respiratory failure secondary to above. 3. History of lower extremity DVT. 4. Lower extremity edema 5. History of arrhythmia : currently appear to be stable though. Recommendations: Continue with respiratory care. Low-dose diuretics will be continued. Antibiotic and pulmonary care as per pulmonary team and internal medicine. I will continue to follow her on telemetry. Discussed with Dr. Estevez. We will start Eliquis a dose of 2.5 mg p.o. twice daily once INR is less than 2.0 for her chronic DVT. Thank you for his referral. I will continue to follow along with you. KIZZY RADER MD [facility]. Problems: KIZZY RADER MD Apr 19, 2017 09:28
[2017-04-19 09:32] LABS: INR 1.51; PROTIME 18.5 Sec (11.9-14.9); PT RATIO 1.4
[2017-04-19] MEDS: FUROSEMIDE 20 MG TAB PO SCH (09:41)
[2017-04-19] MEDS: CHOLECALCIFEROL 1,000 UNIT TAB PO SCH (09:41)
[2017-04-19] MEDS: GABAPENTIN 300 MG CAP PO SCH ×4 (09:42→21:41)
[2017-04-19] MEDS: CITALOPRAM 20 MG TAB PO SCH (09:42)
[2017-04-19] MEDS: LACTOBACILLUS RHAMNOSUS CAP PO SCH ×2 (09:42→21:41)
[2017-04-19] MEDS: MULTIVITAMINS THERAPEUTIC TAB PO SCH (09:42)
[2017-04-19] MEDS: ASCORBIC ACID 500 MG TAB PO SCH (09:42)
[2017-04-19] MEDS: CALCIUM CARBONATE 1.25 GM TAB PO SCH (09:42)
[2017-04-19] MEDS: POTASSIUM CHLORIDE (SR) 20 MEQ TAB PO SCH (09:42)
[2017-04-19] MEDS: NYSTATIN 30 GM POWDER BTL TOP SCH ×2 (09:43→21:41)
[2017-04-19] MEDS: CEFEPIME 2GM/50 ML (PMX) 50 ML IVPB SCH ×2 (09:56→21:41)
[2017-04-19 09:59] LABS: ALBUMIN 3.4 g/dl (3.3-4.9); BILIRUBIN,INDIRECT 0.3 mg/dl (0-1.1); BILIRUBIN,TOTAL 0.3 mg/dl (0.2-1.3); CALCIUM 9.1 mg/dl (8.4-10.2); CREATININE 0.41 mg/dl (0.44-1.00); POTASSIUM 4.7 mmol/L (3.5-5.1); TOTAL PROTEIN 6.8 g/dl (6.1-8.1)
--- NOTE | 2017-04-19 10:23 | PN ---
DATE: 04/19/2017 SUBJECTIVE: The patient is stable. No events overnight. No fevers, chills, nausea, vomiting, no s hortness of breath. OBJECTIVE: VITAL SIGNS: Blood pressure is 122/64, respirations 17, pulse 83, temperature 98.2. HEENT: Head is normocephalic. NECK: Supple. HEART: Regular rate. LUNGS: Show diminished breath sounds at base. ABDOMEN: Soft, nontender to palpation. No rebound or guarding. EXTREMITIES: Negative for clubbing, cyanosis. No edema. DERMATOLOGIC: No rashes. MUSCULOSKELETAL: No joint effusions. NEUROLOGIC: No change in exam. MEDICATIONS: Have been reviewed. LABORATORY DATA: Has been reviewed. ASSESSMENT AND PLAN: 1. Acute hypoxemic respiratory failure. Etiology secondary to healthcare-associated pneumonia. Th e patient is clinically improving. Continue current medical management. Continue nasal cannula and nebulizers, steroids, antibiotics. Follow up with pulmonary. 2. Sepsis secondary to healthcare-associated pneumonia and urinary tract infection. Continue curre nt antibiotic regimen. 3. Acute encephalopathy. Etiology is toxic metabolic. Continue to monitor. Mental status is impr oving. 4. Hypertension. Continue current blood pressure regimen. 5. Arrhythmia, currently in sinus rhythm. Continue to monitor. Follow up with cardiology. 6. History of deep venous thrombosis. The patient is currently on Coumadin. INR is near goal. We will follow up INR from this morning and adjust Coumadin as needed. Consider starting Eliquis. 7. Anemia. Monitor change. 8. Left hip with improved. Continue to monitor. 9. Chronic pain syndrome. Continue current pain regimen. 10. Gastrointestinal prophylaxis. 11. General debility. Continue physical therapy. 12. Diastolic heart failure. The patient is on low dose diuretic therapy. Continue follow up with cardiology. Dictated By: DARRICK BROWNE DO NR/NTS Conf#: [id number] DID#: [id number]
[2017-04-19] MEDS: ACETYLCYSTEINE 20% 4 ML VIAL NEB PRN ×3 (10:44→20:12)
--- NOTE | 2017-04-19 10:49 | CONS ---
Date/Time of Note Date/Time of Note DATE: 04/19/17 TIME: 10:47 Assessment/Plan Assessment/Plan Additional Assessment/Plan Assessment and recommendations; 1. Patient admitted with bilateral bronchopneumonia with interval improvement. Started on Solu-Medrol and Levaquin yesterday. Continue current treatment. Consultation Date/Type/Reason Admit Date/Time Apr 16, 2017 at 06:14 Type of Consultation: Pulmonary 24 HR Interval Summary Free Text/Dictation Patient's condition has improved. She reports decreased chest congestion and coughing. Shortness of breath also has improved. Denies any fever chills or chest pain. General exam; elderly woman, awake and alert. Currently in no distress. Exam/Review of Systems Vital Signs Vitals Vital Signs Date Time Temp Pulse Resp B/P Pulse Ox O2 Delivery O2 Flow Rate FiO2 04/19/17 09:19 98.4 79 17 134/67 90 04/19/17 04:23 Nasal Cannula 3.0 Intake and Output 04/18/17 04/18/17 04/19/17 15:00 23:00 07:00 Intake Total 510 ml 530 ml Output Total 1700 ml 700 ml Balance -1190 ml -170 ml Exam HEENT exam; supple neck, no JVD. No lymphadenopathy. Midline trachea. No thyromegaly. Patient has fair dentition. Chest exam; scattered crackles. S1-S2 audible, no murmurs. Regular rhythm. Abdomen exam; soft, nontender. No organomegaly. Bowel sounds audible. Extremity exam; no edema. GENERAL ACCOUNTANT exam; no focal deficit. Results Result Diagram: 04/19/17 0824 04/19/17 0824 Results 24 hrs Laboratory Tests Test 04/19/17 08:24 White Blood Count 6.2 # Red Blood Count 3.68 L Hemoglobin 12.3 Hematocrit 36.9 L Mean Corpuscular Volume 100.3 Mean Corpuscular Hemoglobin 33.4 H Mean Corpuscular Hemoglobin Concent 33.3 Red Cell Distribution Width 13.4 Platelet Count 203 Mean Platelet Volume 10.6 H Neutrophils % 83.5 H Lymphocytes % 10.0 L Monocytes % 5.7 Eosinophils % 0.0 Basophils % 0.2 Nucleated Red Blood Cells % 0.0 Neutrophils # 5.2 Lymphocytes # 0.6 L Monocytes # 0.4 Eosinophils # 0.0 Basophils # 0.0 Nucleated Red Blood Cells # 0.0 Prothrombin Time 18.5 #H Prothrombin Time Ratio 1.4 INR International Normalized Ratio 1.51 Sodium Level 137 Potassium Level 4.7 Chloride Level 101 Carbon Dioxide Level 28 Anion Gap 13 Blood Urea Nitrogen 20 Creatinine 0.41 L Glucose Level 153 Calcium Level 9.1 Total Bilirubin 0.3 Direct Bilirubin 0.00 Indirect Bilirubin 0.3 Aspartate Amino Transf (AST/SGOT) 22 Alanine Aminotransferase (ALT/SGPT) 37 Alkaline Phosphatase 88 Total Protein 6.8 Albumin 3.4 Globulin 3.40 H Albumin/Globulin Ratio 1.00 Medications Medications Current Medications Acetaminophen/ Hydrocodone Bitart ([place] (5/325)) 1 tab Q6 PRN PO Pain Last administered on 04/19/17 06:46; Admin Dose 1 TAB; Start 04/16/17 at 07:30 Acetaminophen (Tylenol Tab) 1,000 mg Q6H PRN PO PAIN AND OR ELEVATED TEMP; Start 04/16/17 at 18:00 Alendronate Sodium (Fosamax) 70 mg Loya@0730 PO Last administered on 04/17/17 08:20; Admin Dose 70 MG; Start 04/17/17 at 07:30 Ascorbic Acid (Vitamin C) 500 mg DAILY PO Last administered on 04/19/17 09:42 ; Admin Dose 500 MG; Start 04/17/17 at 09:00 Bisacodyl (Dulcolax Supp) 10 mg Q24H PRN [place] CONSTIPATION; Start 04/16/17 at 18 :00 Cholecalciferol (Vitamin D) 1,000 unit DAILY PO Last administered on 09:41; Admin Dose 1,000 UNIT; Start 04/17/17 at 09:00 Citalopram Hydrobromide (Celexa) 20 mg DAILY PO Last administered on 09:42; Admin Dose 20 MG; Start 04/17/17 at 09:00 Docusate Sodium (Colace) 200 mg QHS PRN PO CONSTIPATION; Start 04/16/17 at 18: 00 Furosemide (Lasix) 10 mg DAILY PO Last administered on 04/19/17 09:41; Admin Dose 10 MG; Start 04/17/17 at 09:00 Gabapentin (Neurontin) 300 mg QID PO Last administered on 04/19/17 09:42; Admin Dose 300 MG; Start 04/16/17 at 21:00 Acetaminophen/ Hydrocodone Bitart ([place] (5/325)) 1 tab Q4 PRN PO SEVERE PAIN LEVEL 7-10 Last administered on 04/19/17 09:56; Admin Dose 1 TAB; Start 04/16 at 18:00 Magnesium Hydroxide (Milk Of Mag) 30 ml DAILY PRN PO CONSTIPATION; Start 04/16 at 18:00 Mineral Oil (Fleet Mineral Oil Enema) 133 ml DAILY PRN [place] CONSTIPATION; Start 04/16/17 at 18:00 Multivitamins Therapeutic (Theragran) 1 tab DAILY PO Last administered on 04/19 09:42; Admin Dose 1 TAB; Start 04/17/17 at 09:00 Potassium Chloride (Klor-Con 20) 20 meq DAILY PO Last administered on 09:42; Admin Dose 20 MEQ; Start 04/17/17 at 09:00 Tramadol HCl (Ultram) 50 mg BID PRN PO PAIN Last administered on 04/19/17 02: 34; Admin Dose 50 MG; Start 04/16/17 at 18:00 Calcium Carbonate (Oyster Shell Calcium) 1.25 gm DAILY PO Last administered on 04/19/17 09:42; Admin Dose 1.25 GM; Start 04/17/17 at 09:00 Lactobacillus Acidophilus/ Rhamnosus (Culturelle) 1 cap BID PO Last administered on 04/19/17 09:42; Admin Dose 1 CAP; Start 04/16/17 at 21:00 Guaifenesin/ Codeine Phosphate 5 ml 5 ml Q4H PRN PO cough Last administered on 04/19/17 09:56; Admin Dose 5 ML; Start 04/16/17 at 21:30 Cefepime HCl (Maxipime 2gm/50 ml (Pmx)) 50 ml @ 100 mls/hr Q12 IVPB Last administered on 04/19/17 09:56; Admin Dose 100 MLS/HR; Start 04/17/17 at 09: 00 Miscellaneous Information (Pending [facility] Order For Wound Care) This patient briggs... PRN PRN XX WOUND CARE; Start 04/17/17 at 01:30 Nystatin (Nystatin Powder) 1 applic BID TOP Last administered on 12/19/17at 09: 43; Admin Dose 1 APPLIC; Start 04/17/17 at 21:00 Pantoprazole 40 mg 40 mg DAILY@06 PO Last administered on 04/19/17 06:45; Admin Dose 40 MG; Start 04/19/17 at 06:00 Levofloxacin/ Dextrose (Levaquin 500mg/ D5W 100 ml (Pmx)) 100 ml @ 100 mls/hr Q24H IVPB Last administered on 04/18/17 12:09; Admin Dose 100 MLS/HR; Start 04/18/17 at 11:30 Methylprednisolone Sodium Succinate (Solu-Medrol) 40 mg Q8 IV Last administered on 04/19/17 06:45; Admin Dose 40 MG; Start 04/18/17 at 14:00 ALEJO FERGUSON Apr 19, 2017 10:49
[2017-04-19 12:32] LABS: PHOSPHORUS 2.7 mg/dl (2.5-4.9)
[2017-04-19] MEDS: LEVOFLOXACIN 500MG/D5W (PMX) 100 ML IVPB SCH (12:46)
[2017-04-19 13:01] LABS: MAGNESIUM 1.7 mg/dl (1.7-2.5)
--- NOTE | 2017-04-19 20:10 | CONS ---
Date/Time of Note Date/Time of Note DATE: 04/19/17 TIME: 20:08 Assessment/Plan Assessment/Plan Chief Complaint/Hosp Course SUBJECTIVE: No acute changes overnight. The patient is alert, feels better, no shortness of breath, no fevers MICROBIOLOGY: Blood culture negative. Urine culture grew Proteus mirabilis and staph species ANTIMICROBIALS: The patient is on levofloxacin and cefepime. She is also getting steroids. DIAGNOSTICS: Chest x-ray on admission revealed bibasilar discoid atelectasis and small bilateral pleural effusions. INDWELLINGS: Tang catheter. PHYSICAL EXAMINATION: GENERAL: Obese, chronically ill-appearing, elderly woman who is awake, in no distress. HEENT: Head atraumatic, normocephalic. Sclerae anicteric. Buccal mucosa dry. NECK: Supple. CHEST: Rise symmetrical. Breath sounds with bilateral rhonchi and expiratory wheezes. HEART: S1, S2. ABDOMEN: Soft. Bowel tones present. EXTREMITIES: Bilateral lower extremities wasted. Chronic venostasis and edema. ASSESSMENT: 1. Acute hypoxemic respiratory failure secondary to healthcare-associated pneumonia and bilateral pleural effusions. 2. Proteus mirabilis urinary tract infection. 3. Anemia. 4. Hypertension. 5. Obesity. PLAN: Doing better, continue present care, antibiotics, follow cardiology and pulmonary recommendations. DW staff Problems: Consultation Date/Type/Reason Admit Date/Time Apr 16, 2017 at 06:14 Initial Consult Date Type of Consultation: id Exam/Review of Systems Vital Signs Vitals Vital Signs Date Time Temp Pulse Resp B/P Pulse Ox O2 Delivery O2 Flow Rate FiO2 04/19/17 18:06 75 22 96 Nasal Cannula 5.0 04/19/17 17:06 98.8 129/69 Intake and Output 04/18/17 04/18/17 04/19/17 15:00 23:00 07:00 Intake Total 510 ml 530 ml Output Total 1700 ml 700 ml Balance -1190 ml -170 ml Results Result Diagram: 04/19/1724 04/19/17 0824 Results 24 hrs Laboratory Tests Test 04/19/17 08:24 White Blood Count 6.2 # Red Blood Count 3.68 L Hemoglobin 12.3 Hematocrit 36.9 L Mean Corpuscular Volume 100.3 Mean Corpuscular Hemoglobin 33.4 H Mean Corpuscular Hemoglobin Concent 33.3 Red Cell Distribution Width 13.4 Platelet Count 203 Mean Platelet Volume 10.6 H Neutrophils % 83.5 H Lymphocytes % 10.0 L Monocytes % 5.7 Eosinophils % 0.0 Basophils % 0.2 Nucleated Red Blood Cells % 0.0 Neutrophils # 5.2 Lymphocytes # 0.6 L Monocytes # 0.4 Eosinophils # 0.0 Basophils # 0.0 Nucleated Red Blood Cells # 0.0 Prothrombin Time 18.5 #H Prothrombin Time Ratio 1.4 INR International Normalized Ratio 1.51 Sodium Level 137 Potassium Level 4.7 Chloride Level 101 Carbon Dioxide Level 28 Anion Gap 13 Blood Urea Nitrogen 20 Creatinine 0.41 L Glucose Level 153 Calcium Level 9.1 Phosphorus Level 2.7 Magnesium Level 1.7 Total Bilirubin 0.3 Direct Bilirubin 0.00 Indirect Bilirubin 0.3 Aspartate Amino Transf (AST/SGOT) 22 Alanine Aminotransferase (ALT/SGPT) 37 Alkaline Phosphatase 88 Total Protein 6.8 Albumin 3.4 Globulin 3.40 H Albumin/Globulin Ratio 1.00 Medications Medications Current Medications Acetaminophen/ Hydrocodone Bitart ([place] (5/325)) 1 tab Q6 PRN PO Pain Last administered on 04/19/17 06:46; Admin Dose 1 TAB; Start 04/16/17 at 07:30 Acetaminophen (Tylenol Tab) 1,000 mg Q6H PRN PO PAIN AND OR ELEVATED TEMP; Start 04/16/17 at 18:00 Alendronate Sodium (Fosamax) 70 mg Loya@0730 PO Last administered on 04/17/17 08:20; Admin Dose 70 MG; Start 04/17/17 at 07:30 Ascorbic Acid (Vitamin C) 500 mg DAILY PO Last administered on 04/19/17 09:42 ; Admin Dose 500 MG; Start 04/17/17 at 09:00 Bisacodyl (Dulcolax Supp) 10 mg Q24H PRN [place] CONSTIPATION; Start 04/16/17 at 18 :00 Cholecalciferol (Vitamin D) 1,000 unit DAILY PO Last administered on 09:41; Admin Dose 1,000 UNIT; Start 04/17/17 at 09:00 Citalopram Hydrobromide (Celexa) 20 mg DAILY PO Last administered on 09:42; Admin Dose 20 MG; Start 04/17/17 at 09:00 Docusate Sodium (Colace) 200 mg QHS PRN PO CONSTIPATION; Start 04/16/17 at 18: 00 Furosemide (Lasix) 10 mg DAILY PO Last administered on 04/19/17 09:41; Admin Dose 10 MG; Start 04/17/17 at 09:00 Gabapentin (Neurontin) 300 mg QID PO Last administered on 04/19/17 17:44; Admin Dose 300 MG; Start 04/16/17 at 21:00 Acetaminophen/ Hydrocodone Bitart ([place] (5/325)) 1 tab Q4 PRN PO SEVERE PAIN LEVEL 7-10 Last administered on 04/19/17 14:37; Admin Dose 1 TAB; Start 04/16 at 18:00 Magnesium Hydroxide (Milk Of Mag) 30 ml DAILY PRN PO CONSTIPATION; Start 04/16 at 18:00 Mineral Oil (Fleet Mineral Oil Enema) 133 ml DAILY PRN [place] CONSTIPATION; Start 04/16/17 at 18:00 Multivitamins Therapeutic (Theragran) 1 tab DAILY PO Last administered on 04/19 09:42; Admin Dose 1 TAB; Start 04/17/17 at 09:00 Potassium Chloride (Klor-Con 20) 20 meq DAILY PO Last administered on 09:42; Admin Dose 20 MEQ; Start 04/17/17 at 09:00 Tramadol HCl (Ultram) 50 mg BID PRN PO PAIN Last administered on 04/19/17 02: 34; Admin Dose 50 MG; Start 04/16/17 at 18:00 Calcium Carbonate (Oyster Shell Calcium) 1.25 gm DAILY PO Last administered on 04/19/17 09:42; Admin Dose 1.25 GM; Start 04/17/17 at 09:00 Lactobacillus Acidophilus/ Rhamnosus (Culturelle) 1 cap BID PO Last administered on 04/19/17 09:42; Admin Dose 1 CAP; Start 04/16/17 at 21:00 Guaifenesin/ Codeine Phosphate 5 ml 5 ml Q4H PRN PO cough Last administered on 04/19/17 14:36; Admin Dose 5 ML; Start 04/16/17 at 21:30 Cefepime HCl (Maxipime 2gm/50 ml (Pmx)) 50 ml @ 100 mls/hr Q12 IVPB Last administered on 04/19/17 09:56; Admin Dose 100 MLS/HR; Start 04/17/17 at 09: 00 Miscellaneous Information (Pending [facility] Order For Wound Care) This patient briggs... PRN PRN XX WOUND CARE; Start 04/17/17 at 01:30 Nystatin (Nystatin Powder) 1 applic BID TOP Last administered on 04/19/17 09: 43; Admin Dose 1 APPLIC; Start 04/17/17 at 21:00 Pantoprazole 40 mg 40 mg DAILY@06 PO Last administered on 04/19/17 06:45; Admin Dose 40 MG; Start 04/19/17 at 06:00 Levofloxacin/ Dextrose (Levaquin 500mg/ D5W 100 ml (Pmx)) 100 ml @ 100 mls/hr Q24H IVPB Last administered on 04/19/17 12:46; Admin Dose 100 MLS/HR; Start 04/18/17 at 11:30 Methylprednisolone Sodium Succinate (Solu-Medrol) 40 mg Q8 IV Last administered on 04/19/17 14:37; Admin Dose 40 MG; Start 04/18/17 at 14:00 MIRTHA SUERO NP Apr 19, 2017 20:10
[2017-04-20] VITALS (12 sets, daily range): BP systolic 132–147; BP diastolic 65–79; PULSE 66–81; RESP 17–19
[2017-04-20] MEDS: ALBUTEROL/IPRATROPIUM (NEB) 3 ML AMP NEB PRN ×4 (01:14→19:37)
[2017-04-20] MEDS: ACETYLCYSTEINE 20% 4 ML VIAL NEB PRN ×4 (01:25→19:51)
[2017-04-20] MEDS: GUAIFENESIN/CODEINE 5ML CUP PO PRN ×2 (02:03→06:21)
[2017-04-20] MEDS: HYDROCODONE/APAP (5/325) TAB PO PRN ×3 (02:03→20:35)
[2017-04-20] MEDS: PANTOPRAZOLE (EC) 40 MG TAB PO SCH (06:21)
[2017-04-20] MEDS: METHYLPREDNISOLONE 40 MG INJ IV SCH ×3 (06:21→21:44)
[2017-04-20] MEDS: FUROSEMIDE 20 MG TAB PO SCH (08:19)
[2017-04-20] MEDS: LACTOBACILLUS RHAMNOSUS CAP PO SCH ×2 (08:20→20:34)
[2017-04-20] MEDS: MULTIVITAMINS THERAPEUTIC TAB PO SCH (08:20)
[2017-04-20] MEDS: CITALOPRAM 20 MG TAB PO SCH (08:20)
[2017-04-20] MEDS: CALCIUM CARBONATE 1.25 GM TAB PO SCH (08:21)
[2017-04-20] MEDS: ASCORBIC ACID 500 MG TAB PO SCH (08:21)
[2017-04-20] MEDS: CHOLECALCIFEROL 1,000 UNIT TAB PO SCH (08:21)
[2017-04-20] MEDS: GABAPENTIN 300 MG CAP PO SCH ×4 (08:21→20:36)
[2017-04-20] MEDS: POTASSIUM CHLORIDE (SR) 20 MEQ TAB PO SCH (08:21)
[2017-04-20] MEDS: CEFEPIME 2GM/50 ML (PMX) 50 ML IVPB SCH ×2 (08:22→20:34)
[2017-04-20] MEDS: NYSTATIN 30 GM POWDER BTL TOP SCH ×2 (08:29→20:38)
[2017-04-20 08:44] LABS: INR 1.32; PROTIME 16.6 Sec (11.9-14.9); PT RATIO 1.3
[2017-04-20] MEDS: APIXABAN 5 MG TABLET PO SCH ×2 (09:07→20:36)
--- NOTE | 2017-04-20 09:12 | PN ---
DATE: 04/20/2017 SUBJECTIVE: The patient is clinically improving. No acute events noted overnight. No fevers, chil ls, nausea, vomiting, no shortness of breath. OBJECTIVE: VITAL SIGNS: Blood pressure is 139/79, respiration 18, pulse 82, temperature 98.3. HEENT: Head is normocephalic. NECK: Supple. HEART: Regular rate. LUNGS: Show diminished breath sounds at the base. ABDOMEN: Soft, nontender to palpation. No rebound or guarding. EXTREMITIES: Negative for clubbing, cyanosis, no edema. DERMATOLOGIC: No rashes. MUSCULOSKELETAL: No joint effusions. NEUROLOGIC: No change in exam. MEDICATIONS: The patient's medications have been reviewed. LABORATORY DATA: Has been reviewed. ASSESSMENT AND PLAN: 1. Acute hypoxemic respiratory failure secondary to healthcare-associated pneumonia. The patient i s clinically improving, currently on 5 liters nasal cannula. Continue current medical management. Continue antibiotics, continue nebulizers. Continue nasal cannula. Follow up with pulmonary. Cont inue steroids. 2. Sepsis secondary to healthcare-associated pneumonia. Continue current antibiotic regimen. 3. Acute encephalopathy, etiology toxic metabolic. Continue to monitor. 4. Hypertension. Continue current blood pressure regimen. 5. Arrhythmia, currently in sinus rhythm. Continue to monitor. Follow up with cardiology. 6. History of deep venous thrombosis. The patient's INR is currently subtherapeutic. Currently, p maikel is on Eliquis. We will continue. 7. Anemia. Monitor hematocrit levels. 8. Left foot improved. 9. Chronic pain syndrome. Continue current pain regimen. 10. Gastrointestinal and deep venous thrombosis prophylaxis. 11. General debility. Continue physical therapy. 12. History of diastolic heart failure, chronic. The patient is currently compensated. Continue m edical management. Follow up with cardiology. DISPOSITION: The patient will place a [place] evaluation for the patient. Dictated By: DARRICK LYNN/JOSE Conf#: [id number] DID#: [id number]
--- NOTE | 2017-04-20 09:51 | CONS ---
Date/Time of Note Date/Time of Note DATE: 04/20/17 TIME: 09:50 Consult Date/Type/Reason Admit Date/Time Apr 16, 2017 at 06:14 Type of Consultation: cv Subjective Cardiology follow-up progress note: Subjective: Discussed with staff and rhythm strip was reviewed. Patient remains sinus rhythm. Patient denies any left-sided chest pain or pressure to me. She is still coughing though has shortness of breath but much improved today She denies any palpitation to me. Objective: General: no acute distress HEENT: NC/AT. pupils are equal. round. NECK: NO JVD. no stridor. CV: RRR. systolic murmur; no gallop or rubs. PULM: + Diffuse rhonchi. GI: SOFT, NT, ND, no rebound or guarding Extremity: + B/L LE edema. no clubbing. neuro: awake and alert, OX3. Psych: calm and pleasant rectal: deferred : Deferred ECHO EF 55% U/S LE : no DVT Objective Vital Signs Date Time Temp Pulse Resp B/P Pulse Ox O2 Delivery O2 Flow Rate FiO2 04/20/17 09:21 3.0 04/20/17 09:00 90 26 92 Nasal Cannula 04/20/17 08:08 98.3 139/79 Intake and Output 04/19/17 04/19/17 04/20/17 14:59 22:59 06:59 Intake Total 725 ml 850 ml 600 ml Output Total 1300 ml 750 ml 1100 ml Balance -575 ml 100 ml -500 ml Results/Medications Result Diagram: 04/19/17 0824 04/19/17 0824 Results 24 hrs Laboratory Tests Test 04/20/17 07:28 Prothrombin Time 16.6 H Prothrombin Time Ratio 1.3 INR International Normalized Ratio 1.32 Medications Current Medications Acetaminophen/ Hydrocodone Bitart ([place] (5/325)) 1 tab Q6 PRN PO Pain Last administered on 04/19/17 06:46; Admin Dose 1 TAB; Start 04/16/17 at 07:30 Acetaminophen (Tylenol Tab) 1,000 mg Q6H PRN PO PAIN AND OR ELEVATED TEMP; Start 04/16/17 at 18:00 Alendronate Sodium (Fosamax) 70 mg Loya@0730 PO Last administered on 04/17/17 08:20; Admin Dose 70 MG; Start 04/17/17 at 07:30 Ascorbic Acid (Vitamin C) 500 mg DAILY PO Last administered on 04/20/17 08:21 ; Admin Dose 500 MG; Start 04/17/17 at 09:00 Bisacodyl (Dulcolax Supp) 10 mg Q24H PRN [place] CONSTIPATION; Start 04/16/17 at 18 :00 Cholecalciferol (Vitamin D) 1,000 unit DAILY PO Last administered on 08:21; Admin Dose 1,000 UNIT; Start 04/17/17 at 09:00 Citalopram Hydrobromide (Celexa) 20 mg DAILY PO Last administered on 08:20; Admin Dose 20 MG; Start 04/17/17 at 09:00 Docusate Sodium (Colace) 200 mg QHS PRN PO CONSTIPATION; Start 04/16/17 at 18: 00 Furosemide (Lasix) 10 mg DAILY PO Last administered on 04/20/17 08:19; Admin Dose 10 MG; Start 04/17/17 at 09:00 Gabapentin (Neurontin) 300 mg QID PO Last administered on 04/20/17 08:21; Admin Dose 300 MG; Start 04/16/17 at 21:00 Acetaminophen/ Hydrocodone Bitart ([place] (5/325)) 1 tab Q4 PRN PO SEVERE PAIN LEVEL 7-10 Last administered on 04/20/17 06:21; Admin Dose 1 TAB; Start 04/16 at 18:00 Magnesium Hydroxide (Milk Of Mag) 30 ml DAILY PRN PO CONSTIPATION; Start 04/16 at 18:00 Mineral Oil (Fleet Mineral Oil Enema) 133 ml DAILY PRN [place] CONSTIPATION; Start 04/16/17 at 18:00 Multivitamins Therapeutic (Theragran) 1 tab DAILY PO Last administered on 04/20 08:20; Admin Dose 1 TAB; Start 04/17/17 at 09:00 Potassium Chloride (Klor-Con 20) 20 meq DAILY PO Last administered on 08:21; Admin Dose 20 MEQ; Start 04/17/17 at 09:00 Tramadol HCl (Ultram) 50 mg BID PRN PO PAIN Last administered on 04/19/17 02: 34; Admin Dose 50 MG; Start 04/16/17 at 18:00 Calcium Carbonate (Oyster Shell Calcium) 1.25 gm DAILY PO Last administered on 04/20/17 08:21; Admin Dose 1.25 GM; Start 04/17/17 at 09:00 Lactobacillus Acidophilus/ Rhamnosus (Culturelle) 1 cap BID PO Last administered on 04/20/17 08:20; Admin Dose 1 CAP; Start 04/16/17 at 21:00 Guaifenesin/ Codeine Phosphate 5 ml 5 ml Q4H PRN PO cough Last administered on 04/20/17 06:21; Admin Dose 5 ML; Start 04/16/17 at 21:30 Cefepime HCl (Maxipime 2gm/50 ml (Pmx)) 50 ml @ 100 mls/hr Q12 IVPB Last administered on 04/20/17 08:22; Admin Dose 100 MLS/HR; Start 04/17/17 at 09: 00 Miscellaneous Information (Pending [facility] Order For Wound Care) This patient briggs... PRN PRN XX WOUND CARE; Start 04/17/17 at 01:30 Nystatin (Nystatin Powder) 1 applic BID TOP Last administered on 04/20/17 08: 29; Admin Dose 1 APPLIC; Start 04/17/17 at 21:00 Pantoprazole 40 mg 40 mg DAILY@06 PO Last administered on 04/20/17 06:21; Admin Dose 40 MG; Start 04/19/17 at 06:00 Levofloxacin/ Dextrose (Levaquin 500mg/ D5W 100 ml (Pmx)) 100 ml @ 100 mls/hr Q24H IVPB Last administered on 04/19/17 12:46; Admin Dose 100 MLS/HR; Start 04/18/17 at 11:30 Methylprednisolone Sodium Succinate (Solu-Medrol) 40 mg Q8 IV Last administered on 04/20/17 06:21; Admin Dose 40 MG; Start 04/18/17 at 14:00 Apixaban (Eliquis) 2.5 mg BID PO Last administered on 04/20/17 09:07; Admin Dose 2.5 MG; Start 04/20/17 at 09:00 Assessment/Plan Chief Complaint/Hosp Course 1. Pneumonia/bronchitis. 2. Hypoxemic respiratory failure secondary to above. 3. History of lower extremity DVT. 4. Lower extremity edema 5. History of arrhythmia : currently appear to be stable though. Recommendations: Continue with respiratory care. Low-dose diuretics will be continued. Antibiotic and pulmonary care as per pulmonary team and internal medicine. cont telemetry. Discussed with Dr. Estevez. We will start Eliquis a dose of 2.5 mg p.o. twice daily for her chronic DVT. Thank you for his referral. I will continue to follow along with you. KIZZY RADER MD [facility]. Problems: KIZZY RADER MD Apr 20, 2017 09:50
--- NOTE | 2017-04-20 10:46 | CONS ---
Date/Time of Note Date/Time of Note DATE: 04/20/17 TIME: 10:45 Assessment/Plan Assessment/Plan Additional Assessment/Plan Assessment and recommendations; 1. Patient admitted with bilateral bronchopneumonia with significant clinical improvement. 2. History of depression and neuropathy. Continue current treatment. Start steroid taper in 24 hours. Consultation Date/Type/Reason Admit Date/Time Apr 16, 2017 at 06:14 Type of Consultation: Pulmonary 24 HR Interval Summary Free Text/Dictation Patient's condition is significantly improved. She denies any further coughing. Shortness of breath is markedly improved. Denies any sputum production. General exam; elderly woman, awake and alert. Currently in no distress. Exam/Review of Systems Vital Signs Vitals Vital Signs Date Time Temp Pulse Resp B/P Pulse Ox O2 Delivery O2 Flow Rate FiO2 04/20/17 09:21 3.0 04/20/17 09:00 90 26 92 Nasal Cannula 04/20/17 08:08 98.3 139/79 Intake and Output 04/19/17 04/19/17 04/20/17 14:59 22:59 06:59 Intake Total 725 ml 850 ml 600 ml Output Total 1300 ml 750 ml 1100 ml Balance -575 ml 100 ml -500 ml Exam HEENT exam; supple neck, no JVD. No lymphadenopathy. Midline trachea. No thyromegaly. Chest exam; clear to auscultation. S1-S2 audible, no murmurs. Regular rhythm. Abdomen exam; soft, nontender. No organomegaly. Bowel sounds audible. Extremity exam; no edema. MECHANICAL MAINTENANCE FOREMAN exam; no focal deficit. Results Result Diagram: 04/19/1782304/19/17 0824 Results 24 hrs Laboratory Tests Test 04/20/17 07:28 Prothrombin Time 16.6 H Prothrombin Time Ratio 1.3 INR International Normalized Ratio 1.32 Medications Medications Current Medications Acetaminophen/ Hydrocodone Bitart ([place] (5/325)) 1 tab Q6 PRN PO Pain Last administered on 04/19/17 06:46; Admin Dose 1 TAB; Start 04/16/17 at 07:30 Acetaminophen (Tylenol Tab) 1,000 mg Q6H PRN PO PAIN AND OR ELEVATED TEMP; Start 04/16/17 at 18:00 Alendronate Sodium (Fosamax) 70 mg Loya@0730 PO Last administered on 04/17/17 08:20; Admin Dose 70 MG; Start 04/17/17 at 07:30 Ascorbic Acid (Vitamin C) 500 mg DAILY PO Last administered on 04/20/17 08:21 ; Admin Dose 500 MG; Start 04/17/17 at 09:00 Bisacodyl (Dulcolax Supp) 10 mg Q24H PRN [place] CONSTIPATION; Start 04/16/17 at 18 :00 Cholecalciferol (Vitamin D) 1,000 unit DAILY PO Last administered on 08:21; Admin Dose 1,000 UNIT; Start 04/17/17 at 09:00 Citalopram Hydrobromide (Celexa) 20 mg DAILY PO Last administered on 08:20; Admin Dose 20 MG; Start 04/17/17 at 09:00 Docusate Sodium (Colace) 200 mg QHS PRN PO CONSTIPATION; Start 04/16/17 at 18: 00 Furosemide (Lasix) 10 mg DAILY PO Last administered on 04/20/17 08:19; Admin Dose 10 MG; Start 04/17/17 at 09:00 Gabapentin (Neurontin) 300 mg QID PO Last administered on 04/20/17 08:21; Admin Dose 300 MG; Start 04/16/17 at 21:00 Acetaminophen/ Hydrocodone Bitart ([place] (5/325)) 1 tab Q4 PRN PO SEVERE PAIN LEVEL 7-10 Last administered on 04/20/17 06:21; Admin Dose 1 TAB; Start 04/16 at 18:00 Magnesium Hydroxide (Milk Of Mag) 30 ml DAILY PRN PO CONSTIPATION; Start 04/16 at 18:00 Mineral Oil (Fleet Mineral Oil Enema) 133 ml DAILY PRN [place] CONSTIPATION; Start 04/16/17 at 18:00 Multivitamins Therapeutic (Theragran) 1 tab DAILY PO Last administered on 04/20 08:20; Admin Dose 1 TAB; Start 04/17/17 at 09:00 Potassium Chloride (Klor-Con 20) 20 meq DAILY PO Last administered on 08:21; Admin Dose 20 MEQ; Start 04/17/17 at 09:00 Tramadol HCl (Ultram) 50 mg BID PRN PO PAIN Last administered on 04/19/17 02: 34; Admin Dose 50 MG; Start 04/16/17 at 18:00 Calcium Carbonate (Oyster Shell Calcium) 1.25 gm DAILY PO Last administered on 04/20/17 08:21; Admin Dose 1.25 GM; Start 04/17/17 at 09:00 Lactobacillus Acidophilus/ Rhamnosus (Culturelle) 1 cap BID PO Last administered on 04/20/17 08:20; Admin Dose 1 CAP; Start 04/16/17 at 21:00 Guaifenesin/ Codeine Phosphate 5 ml 5 ml Q4H PRN PO cough Last administered on 04/20/17 06:21; Admin Dose 5 ML; Start 04/16/17 at 21:30 Cefepime HCl (Maxipime 2gm/50 ml (Pmx)) 50 ml @ 100 mls/hr Q12 IVPB Last administered on 04/20/17 08:22; Admin Dose 100 MLS/HR; Start 04/17/17 at 09: 00 Miscellaneous Information (Pending [facility] Order For Wound Care) This patient briggs... PRN PRN XX WOUND CARE; Start 04/17/17 at 01:30 Nystatin (Nystatin Powder) 1 applic BID TOP Last administered on 04/20/17 08: 29; Admin Dose 1 APPLIC; Start 04/17/17 at 21:00 Pantoprazole 40 mg 40 mg DAILY@06 PO Last administered on 04/20/17 06:21; Admin Dose 40 MG; Start 04/19/17 at 06:00 Levofloxacin/ Dextrose (Levaquin 500mg/ D5W 100 ml (Pmx)) 100 ml @ 100 mls/hr Q24H IVPB Last administered on 04/19/17 12:46; Admin Dose 100 MLS/HR; Start 04/18/17 at 11:30 Methylprednisolone Sodium Succinate (Solu-Medrol) 40 mg Q8 IV Last administered on 04/20/17 06:21; Admin Dose 40 MG; Start 04/18/17 at 14:00 Apixaban (Eliquis) 2.5 mg BID PO Last administered on 04/20/17 09:07; Admin Dose 2.5 MG; Start 04/20/17 at 09:00 ALEJO FERGUSON Apr 20, 2017 10:46
[2017-04-20] MEDS: LEVOFLOXACIN 500MG/D5W (PMX) 100 ML IVPB SCH (12:23)
--- NOTE | 2017-04-20 14:58 | CONS ---
Date/Time of Note Date/Time of Note DATE: 04/20/17 TIME: 14:57 Assessment/Plan Assessment/Plan Chief Complaint/Hosp Course SUBJECTIVE: No acute changes overnight. The patient is alert, feels good, eating lunch, no fevers MICROBIOLOGY: Blood culture negative. Urine culture grew oxacillin sensitive staph aureus and multidrug-resistant Proteus mirabilis ANTIMICROBIALS: The patient is on levofloxacin and cefepime. She is also getting steroids. DIAGNOSTICS: Chest x-ray on admission revealed bibasilar discoid atelectasis and small bilateral pleural effusions. INDWELLINGS: Tang catheter. PHYSICAL EXAMINATION: GENERAL: Obese, chronically ill-appearing, elderly woman who is awake, in no distress. HEENT: Head atraumatic, normocephalic. Sclerae anicteric. Buccal mucosa dry. NECK: Supple. CHEST: Rise symmetrical. Breath sounds with bilateral rhonchi and expiratory wheezes. HEART: S1, S2. ABDOMEN: Soft. Bowel tones present. EXTREMITIES: Bilateral lower extremities wasted. Chronic venostasis and edema. ASSESSMENT: 1. Acute hypoxemic respiratory failure secondary to healthcare-associated pneumonia and bilateral pleural effusions. 2. Proteus mirabilis urinary tract infection. 3. Anemia. 4. Hypertension. 5. Obesity. PLAN: Remains stable and overall improving, continue present care, antibiotics, follow cardiology and pulmonary recommendations. DW staff Problems: Consultation Date/Type/Reason Admit Date/Time Apr 16, 2017 at 06:14 Type of Consultation: id Exam/Review of Systems Vital Signs Vitals Vital Signs Date Time Temp Pulse Resp B/P Pulse Ox O2 Delivery O2 Flow Rate FiO2 04/20/17 12:10 72 04/20/17 11:53 98.0 18 133/67 96 04/20/17 09:21 3.0 04/20/17 09:00 Nasal Cannula Intake and Output 04/19/17 04/19/17 04/20/17 15:00 23:00 07:00 Intake Total 725 ml 850 ml 600 ml Output Total 1300 ml 750 ml 1100 ml Balance -575 ml 100 ml -500 ml Results Result Diagram: 04/19/17 0824 04/19/17 0824 Results 24 hrs Laboratory Tests Test 04/20/17 07:28 Prothrombin Time 16.6 H Prothrombin Time Ratio 1.3 INR International Normalized Ratio 1.32 Medications Medications Current Medications Acetaminophen/ Hydrocodone Bitart ([place] (5/325)) 1 tab Q6 PRN PO Pain Last administered on 04/19/17 06:46; Admin Dose 1 TAB; Start 04/16/17 at 07:30 Acetaminophen (Tylenol Tab) 1,000 mg Q6H PRN PO PAIN AND OR ELEVATED TEMP; Start 04/16/17 at 18:00 Alendronate Sodium (Fosamax) 70 mg Loya@0730 PO Last administered on 04/17/17 08:20; Admin Dose 70 MG; Start 04/17/17 at 07:30 Ascorbic Acid (Vitamin C) 500 mg DAILY PO Last administered on 04/20/17 08:21 ; Admin Dose 500 MG; Start 04/17/17 at 09:00 Bisacodyl (Dulcolax Supp) 10 mg Q24H PRN [place] CONSTIPATION; Start 04/16/17 at 18 :00 Cholecalciferol (Vitamin D) 1,000 unit DAILY PO Last administered on 08:21; Admin Dose 1,000 UNIT; Start 04/17/17 at 09:00 Citalopram Hydrobromide (Celexa) 20 mg DAILY PO Last administered on 08:20; Admin Dose 20 MG; Start 04/17/17 at 09:00 Docusate Sodium (Colace) 200 mg QHS PRN PO CONSTIPATION; Start 04/16/17 at 18: 00 Furosemide (Lasix) 10 mg DAILY PO Last administered on 04/20/17 08:19; Admin Dose 10 MG; Start 04/17/17 at 09:00 Gabapentin (Neurontin) 300 mg QID PO Last administered on 04/20/17 14:07; Admin Dose 300 MG; Start 04/16/17 at 21:00 Acetaminophen/ Hydrocodone Bitart ([place] (5/325)) 1 tab Q4 PRN PO SEVERE PAIN LEVEL 7-10 Last administered on 04/20/17 06:21; Admin Dose 1 TAB; Start 04/16 at 18:00 Magnesium Hydroxide (Milk Of Mag) 30 ml DAILY PRN PO CONSTIPATION; Start 04/16 at 18:00 Mineral Oil (Fleet Mineral Oil Enema) 133 ml DAILY PRN [place] CONSTIPATION; Start 04/16/17 at 18:00 Multivitamins Therapeutic (Theragran) 1 tab DAILY PO Last administered on 04/20 08:20; Admin Dose 1 TAB; Start 04/17/17 at 09:00 Potassium Chloride (Klor-Con 20) 20 meq DAILY PO Last administered on 08:21; Admin Dose 20 MEQ; Start 04/17/17 at 09:00 Tramadol HCl (Ultram) 50 mg BID PRN PO PAIN Last administered on 04/19/17 02: 34; Admin Dose 50 MG; Start 04/16/17 at 18:00 Calcium Carbonate (Oyster Shell Calcium) 1.25 gm DAILY PO Last administered on 04/20/17 08:21; Admin Dose 1.25 GM; Start 04/17/17 at 09:00 Lactobacillus Acidophilus/ Rhamnosus (Culturelle) 1 cap BID PO Last administered on 04/20/17 08:20; Admin Dose 1 CAP; Start 04/16/17 at 21:00 Guaifenesin/ Codeine Phosphate 5 ml 5 ml Q4H PRN PO cough Last administered on 04/20/17 06:21; Admin Dose 5 ML; Start 04/16/17 at 21:30 Cefepime HCl (Maxipime 2gm/50 ml (Pmx)) 50 ml @ 100 mls/hr Q12 IVPB Last administered on 04/20/17 08:22; Admin Dose 100 MLS/HR; Start 04/17/17 at 09: 00 Miscellaneous Information (Pending Santyl Order For Wound Care) This patient briggs... PRN PRN XX WOUND CARE; Start 04/17/17 at 01:30 Nystatin (Nystatin Powder) 1 applic BID TOP Last administered on 04/20/17 08: 29; Admin Dose 1 APPLIC; Start 04/17/17 at 21:00 Pantoprazole 40 mg 40 mg DAILY@06 PO Last administered on 04/20/17 06:21; Admin Dose 40 MG; Start 04/19/17 at 06:00 Levofloxacin/ Dextrose (Levaquin 500mg/ D5W 100 ml (Pmx)) 100 ml @ 100 mls/hr Q24H IVPB Last administered on 04/20/17 12:23; Admin Dose 100 MLS/HR; Start 04/18/17 at 11:30 Methylprednisolone Sodium Succinate (Solu-Medrol) 40 mg Q8 IV Last administered on 04/20/17 14:08; Admin Dose 40 MG; Start 04/18/17 at 14:00 Apixaban (Eliquis) 2.5 mg BID PO Last administered on 04/20/17 09:07; Admin Dose 2.5 MG; Start 04/20/17 at 09:00 MIRTHA SUERO NP Apr 20, 2017 14:58
[2017-04-21] VITALS (12 sets, daily range): BP systolic 122–141; BP diastolic 58–79; PULSE 58–65; RESP 17–20
[2017-04-21] MEDS: HYDROCODONE/APAP (5/325) TAB PO PRN ×3 (00:43→21:28)
[2017-04-21] MEDS: ALBUTEROL/IPRATROPIUM (NEB) 3 ML AMP NEB PRN (04:23)
[2017-04-21] MEDS: ACETYLCYSTEINE 20% 4 ML VIAL NEB PRN (04:23)
[2017-04-21] MEDS: METHYLPREDNISOLONE 40 MG INJ IV SCH (05:26)
[2017-04-21] MEDS: PANTOPRAZOLE (EC) 40 MG TAB PO SCH (05:26)
--- NOTE | 2017-04-21 08:23 | CONS ---
Date/Time of Note Date/Time of Note DATE: 04/21/17 TIME: 08:20 Consult Date/Type/Reason Admit Date/Time Apr 16, 2017 at 06:14 Type of Consultation: cv Subjective Cardiology follow-up progress note: Subjective: Discussed with staff and rhythm strip was reviewed. Patient remains sinus rhythm. Patient denies any left-sided chest pain or pressure to me. She is coughing a lot less today She denies any palpitation to me. Objective: General: no acute distress HEENT: NC/AT. pupils are equal. round. NECK: NO JVD. no stridor. CV: RRR. systolic murmur; no gallop or rubs. PULM: + Diffuse rhonchi. GI: SOFT, NT, ND, no rebound or guarding Extremity: + B/L LE edema. no clubbing. neuro: awake and alert, OX3. Psych: calm and pleasant rectal: deferred : Deferred ECHO EF 55% U/S LE : no DVT Objective Vital Signs Date Time Temp Pulse Resp B/P Pulse Ox O2 Delivery O2 Flow Rate FiO2 04/21/17 08:19 58 04/21/17 07:33 Nasal Cannula 2.0 04/21/17 04:24 20 94 04/21/17 04:19 98.1 141/72 Intake and Output 04/20/17 04/20/17 04/21/17 15:00 23:00 07:00 Intake Total 500 ml Output Total 600 ml Balance -100 ml Results/Medications Result Diagram: 04/19/17 0824 04/19/17 0824 Medications Current Medications Acetaminophen/ Hydrocodone Bitart ([place] (5/325)) 1 tab Q6 PRN PO Pain Last administered on 04/20/17 20:35; Admin Dose 1 TAB; Start 04/16/17 at 07:30 Acetaminophen (Tylenol Tab) 1,000 mg Q6H PRN PO PAIN AND OR ELEVATED TEMP Last administered on 04/20/17 16:57; Admin Dose 1,000 MG; Start 04/16/17 at 18:00 Alendronate Sodium (Fosamax) 70 mg Loya@0730 PO Last administered on 04/17/17 08:20; Admin Dose 70 MG; Start 04/17/17 at 07:30 Ascorbic Acid (Vitamin C) 500 mg DAILY PO Last administered on 04/20/17 08:21 ; Admin Dose 500 MG; Start 04/17/17 at 09:00 Bisacodyl (Dulcolax Supp) 10 mg Q24H PRN [place] CONSTIPATION; Start 04/16/17 at 18 :00 Cholecalciferol (Vitamin D) 1,000 unit DAILY PO Last administered on 08:21; Admin Dose 1,000 UNIT; Start 04/17/17 at 09:00 Citalopram Hydrobromide (Celexa) 20 mg DAILY PO Last administered on 08:20; Admin Dose 20 MG; Start 04/17/17 at 09:00 Docusate Sodium (Colace) 200 mg QHS PRN PO CONSTIPATION; Start 04/16/17 at 18: 00 Furosemide (Lasix) 10 mg DAILY PO Last administered on 04/20/17 08:19; Admin Dose 10 MG; Start 04/17/17 at 09:00 Gabapentin (Neurontin) 300 mg QID PO Last administered on 04/20/17 20:36; Admin Dose 300 MG; Start 04/16/17 at 21:00 Acetaminophen/ Hydrocodone Bitart ([place] (5/325)) 1 tab Q4 PRN PO SEVERE PAIN LEVEL 7-10 Last administered on 04/21/17 05:26; Admin Dose 1 TAB; Start 04/16 at 18:00 Magnesium Hydroxide (Milk Of Mag) 30 ml DAILY PRN PO CONSTIPATION; Start 04/16 at 18:00 Mineral Oil (Fleet Mineral Oil Enema) 133 ml DAILY PRN [place] CONSTIPATION; Start 04/16/17 at 18:00 Multivitamins Therapeutic (Theragran) 1 tab DAILY PO Last administered on 04/20 08:20; Admin Dose 1 TAB; Start 04/17/17 at 09:00 Potassium Chloride (Klor-Con 20) 20 meq DAILY PO Last administered on 08:21; Admin Dose 20 MEQ; Start 04/17/17 at 09:00 Tramadol HCl (Ultram) 50 mg BID PRN PO PAIN Last administered on 04/19/17 02: 34; Admin Dose 50 MG; Start 04/16/17 at 18:00 Calcium Carbonate (Oyster Shell Calcium) 1.25 gm DAILY PO Last administered on 04/20/17 08:21; Admin Dose 1.25 GM; Start 04/17/17 at 09:00 Lactobacillus Acidophilus/ Rhamnosus (Culturelle) 1 cap BID PO Last administered on 04/20/17 20:34; Admin Dose 1 CAP; Start 04/16/17 at 21:00 Guaifenesin/ Codeine Phosphate 5 ml 5 ml Q4H PRN PO cough Last administered on 04/20/17 06:21; Admin Dose 5 ML; Start 04/16/17 at 21:30 Cefepime HCl (Maxipime 2gm/50 ml (Pmx)) 50 ml @ 100 mls/hr Q12 IVPB Last administered on 04/20/17 20:34; Admin Dose 100 MLS/HR; Start 04/17/17 at 09: 00 Miscellaneous Information ([facility] This patient briggs... PRN PRN XX WOUND CARE; Start 04/17/17 at 01:30 Nystatin (Nystatin Powder) 1 applic BID TOP Last administered on 04/20/17 20: 38; Admin Dose 1 APPLIC; Start 04/17/17 at 21:00 Pantoprazole 40 mg 40 mg DAILY@06 PO Last administered on 04/21/17 05:26; Admin Dose 40 MG; Start 04/19/17 at 06:00 Levofloxacin/ Dextrose (Levaquin 500mg/ D5W 100 ml (Pmx)) 100 ml @ 100 mls/hr Q24H IVPB Last administered on 04/20/17 12:23; Admin Dose 100 MLS/HR; Start 04/18/17 at 11:30 Methylprednisolone Sodium Succinate (Solu-Medrol) 40 mg Q8 IV Last administered on 04/21/17 05:26; Admin Dose 40 MG; Start 04/18/17 at 14:00 Apixaban (Eliquis) 2.5 mg BID PO Last administered on 04/20/17 20:36; Admin Dose 2.5 MG; Start 04/20/17 at 09:00 Assessment/Plan Chief Complaint/Hosp Course 1. Pneumonia/bronchitis. 2. Hypoxemic respiratory failure secondary to above. 3. History of lower extremity DVT. 4. Lower extremity edema 5. History of arrhythmia : currently appear to be stable though. Recommendations: Continue with respiratory care. Low-dose diuretics will be continued. Antibiotic and pulmonary care as per pulmonary team and internal medicine. cont telemetry. cont Eliquis a dose of 2.5 mg p.o. twice daily for her chronic DVT. Thank you for his referral. I will continue to follow along with you. KIZZY RADER MD [facility]. Problems: KIZZY RADER MD Apr 21, 2017 08:23
[2017-04-21] MEDS: CALCIUM CARBONATE 1.25 GM TAB PO SCH (08:41)
[2017-04-21] MEDS: FUROSEMIDE 20 MG TAB PO SCH (08:41)
[2017-04-21] MEDS: APIXABAN 5 MG TABLET PO SCH ×2 (08:42→21:20)
[2017-04-21] MEDS: ASCORBIC ACID 500 MG TAB PO SCH (08:43)
[2017-04-21] MEDS: CITALOPRAM 20 MG TAB PO SCH (08:43)
[2017-04-21] MEDS: POTASSIUM CHLORIDE (SR) 20 MEQ TAB PO SCH (08:43)
[2017-04-21] MEDS: GABAPENTIN 300 MG CAP PO SCH ×4 (08:43→21:20)
[2017-04-21] MEDS: CHOLECALCIFEROL 1,000 UNIT TAB PO SCH (08:44)
[2017-04-21] MEDS: CEFEPIME 2GM/50 ML (PMX) 50 ML IVPB SCH ×2 (08:44→21:19)
[2017-04-21] MEDS: MULTIVITAMINS THERAPEUTIC TAB PO SCH (08:44)
[2017-04-21] MEDS: LACTOBACILLUS RHAMNOSUS CAP PO SCH ×2 (08:44→21:20)
[2017-04-21] MEDS: NYSTATIN 30 GM POWDER BTL TOP SCH ×2 (08:45→21:21)
--- NOTE | 2017-04-21 10:22 | PN ---
DATE: 04/21/2017 SUBJECTIVE: The patient is stable. No events overnight. OBJECTIVE: VITAL SIGNS: Blood pressure is 140/71, respirations 17, pulse 59, temperature 97.4. HEENT: Head is normocephalic. NECK: Supple. HEART: Regular rate. LUNGS: Show diminished breath sounds at base. ABDOMEN: Soft, nontender to palpation without rebound or guarding. EXTREMITIES: Negative for clubbing, cyanosis, edema. DERMATOLOGIC: No rashes. MUSCULOSKELETAL: No joint effusions. NEUROLOGIC: No change in exam. MEDICATIONS: The patient's medications have been reviewed. LABORATORY DATA: Has been reviewed. No labs this morning. ASSESSMENT AND PLAN: 1. Acute hypoxemic respiratory failure secondary to healthcare-associated pneumonia. The patient i s clinically improving, currently on 2 liters nasal cannula. Continue current medical management. Continue antibiotic therapy, nebulizers, continue steroids. Follow up with pulmonary. 2. Sepsis secondary to healthcare-associated pneumonia. Continue current antibiotic regimen. 3. Acute encephalopathy, etiology is toxic metabolic. Continue to monitor. 4. Hypertension. Continue current blood pressure regimen. 5. Arrhythmia, currently in sinus rhythm. Continue to monitor. Follow up with cardiology. 6. Deep venous thrombosis. Continue Eliquis. 7. Anemia. Monitor hematocrit levels. 8. Chronic pain syndrome. Continue current pain regimen. 9. Gastrointestinal and deep venous thrombosis prophylaxis. 10. General debility. Continue physical therapy. 11. History of diastolic heart failure, chronic. The patient is currently compensated. Continue m edical management. DISPOSITION: A Young evaluation was placed, no bed is currently available. Would consider possibl e discharge back to SNF in the next 1 to 2 days pending approval per consultants. Dictated By: DARRICK BROWNE DO NR/NTS Conf#: [id number] DID#: [id number] CC: CHONG CASTILLO MD;*End*
--- NOTE | 2017-04-21 12:00 | CONS ---
Date/Time of Note Date/Time of Note DATE: 04/21/17 TIME: 11:58 Assessment/Plan Assessment/Plan Additional Assessment/Plan Assessment and recommendations; 1. Patient admitted with bilateral bronchopneumonia with COPD exacerbation with significant clinical improvement. 2. History of depression and neuropathy. Discontinue Solu-Medrol. Start prednisone 30 mg a day to be tapered down further as dictated by clinical status. Continue IV antibiotics for additional 24 hours. Patient would benefit from transfer to a rehab/[facility] for further recuperation. Consultation Date/Type/Reason Admit Date/Time Apr 16, 2017 at 06:14 Type of Consultation: Pulmonary 24 HR Interval Summary Free Text/Dictation Patient's condition is continually improving. She denies any wheezing. Complains of very minimal cough. Denies any sputum production. General exam; elderly female, awake and alert. Currently in no distress. Exam/Review of Systems Vital Signs Vitals Vital Signs Date Time Temp Pulse Resp B/P Pulse Ox O2 Delivery O2 Flow Rate FiO2 04/21/17 11:42 98.5 69 18 136/76 93 04/21/17 07:33 Nasal Cannula 2.0 Intake and Output 04/20/17 04/20/17 04/21/17 15:00 23:00 07:00 Intake Total 500 ml Output Total 600 ml Balance -100 ml Exam HEENT exam; supple neck, no JVD. No lymphadenopathy. Midline trachea. No thyromegaly. Patient has fair dentition. Chest exam; diminished but clear breath sounds. S1-S2 audible, no murmurs. Regular rhythm. Abdomen exam; soft, nontender. No organomegaly. Bowel sounds audible. Extremity exam; no edema. No clubbing. Pulses 1+ bilaterally. EMERGENCY MEDICAL TECHNICIAN/DRIVER exam; no focal deficit. Results Result Diagram: 04/19/1782304/19/17823 Medications Medications Current Medications Acetaminophen/ Hydrocodone Bitart ([place] (5/325)) 1 tab Q6 PRN PO Pain Last administered on 04/20/17 20:35; Admin Dose 1 TAB; Start 04/16/17 at 07:30 Acetaminophen (Tylenol Tab) 1,000 mg Q6H PRN PO PAIN AND OR ELEVATED TEMP Last administered on 04/20/17 16:57; Admin Dose 1,000 MG; Start 04/16/17 at 18:00 Alendronate Sodium (Fosamax) 70 mg Loya@0730 PO Last administered on 04/17/17 08:20; Admin Dose 70 MG; Start 04/17/17 at 07:30 Ascorbic Acid (Vitamin C) 500 mg DAILY PO Last administered on 04/21/17 08:43 ; Admin Dose 500 MG; Start 04/17/17 at 09:00 Bisacodyl (Dulcolax Supp) 10 mg Q24H PRN [place] CONSTIPATION; Start 04/16/17 at 18 :00 Cholecalciferol (Vitamin D) 1,000 unit DAILY PO Last administered on 08:44; Admin Dose 1,000 UNIT; Start 04/17/17 at 09:00 Citalopram Hydrobromide (Celexa) 20 mg DAILY PO Last administered on 08:43; Admin Dose 20 MG; Start 04/17/17 at 09:00 Docusate Sodium (Colace) 200 mg QHS PRN PO CONSTIPATION; Start 04/16/17 at 18: 00 Furosemide (Lasix) 10 mg DAILY PO Last administered on 04/21/17 08:41; Admin Dose 10 MG; Start 04/17/17 at 09:00 Gabapentin (Neurontin) 300 mg QID PO Last administered on 04/21/17 08:43; Admin Dose 300 MG; Start 04/16/17 at 21:00 Acetaminophen/ Hydrocodone Bitart ([place] (5/325)) 1 tab Q4 PRN PO SEVERE PAIN LEVEL 7-10 Last administered on 04/21/17 05:26; Admin Dose 1 TAB; Start 04/16 at 18:00 Magnesium Hydroxide (Milk Of Mag) 30 ml DAILY PRN PO CONSTIPATION; Start 04/16 at 18:00 Mineral Oil (Fleet Mineral Oil Enema) 133 ml DAILY PRN [place] CONSTIPATION; Start 04/16/17 at 18:00 Multivitamins Therapeutic (Theragran) 1 tab DAILY PO Last administered on 04/21 08:44; Admin Dose 1 TAB; Start 04/17/17 at 09:00 Potassium Chloride (Klor-Con 20) 20 meq DAILY PO Last administered on 08:43; Admin Dose 20 MEQ; Start 04/17/17 at 09:00 Tramadol HCl (Ultram) 50 mg BID PRN PO PAIN Last administered on 04/19/17 02: 34; Admin Dose 50 MG; Start 04/16/17 at 18:00 Calcium Carbonate (Oyster Shell Calcium) 1.25 gm DAILY PO Last administered on 04/21/17 08:41; Admin Dose 1.25 GM; Start 04/17/17 at 09:00 Lactobacillus Acidophilus/ Rhamnosus (Culturelle) 1 cap BID PO Last administered on 04/21/17 08:44; Admin Dose 1 CAP; Start 04/16/17 at 21:00 Guaifenesin/ Codeine Phosphate 5 ml 5 ml Q4H PRN PO cough Last administered on 04/20/17 06:21; Admin Dose 5 ML; Start 04/16/17 at 21:30 Cefepime HCl (Maxipime 2gm/50 ml (Pmx)) 50 ml @ 100 mls/hr Q12 IVPB Last administered on 04/21/17 08:44; Admin Dose 100 MLS/HR; Start 04/17/17 at 09: 00 Miscellaneous Information (Pending Santyl Order For Wound Care) This patient briggs... PRN PRN XX WOUND CARE; Start 04/17/17 at 01:30 Nystatin (Nystatin Powder) 1 applic BID TOP Last administered on 04/21/17 08: 45; Admin Dose 1 APPLIC; Start 04/17/17 at 21:00 Pantoprazole 40 mg 40 mg DAILY@06 PO Last administered on 04/21/17 05:26; Admin Dose 40 MG; Start 04/19/17 at 06:00 Levofloxacin/ Dextrose (Levaquin 500mg/ D5W 100 ml (Pmx)) 100 ml @ 100 mls/hr Q24H IVPB Last administered on 04/20/17 12:23; Admin Dose 100 MLS/HR; Start 04/18/17 at 11:30 Methylprednisolone Sodium Succinate (Solu-Medrol) 40 mg Q8 IV Last administered on 04/21/17 05:26; Admin Dose 40 MG; Start 04/18/17 at 14:00 Apixaban (Eliquis) 2.5 mg BID PO Last administered on 04/21/17 08:42; Admin Dose 2.5 MG; Start 04/20/17 at 09:00 ALEJO FERGUSON 21, 2017 12:00
[2017-04-21] MEDS: LEVOFLOXACIN 500MG/D5W (PMX) 100 ML IVPB SCH (12:02)
--- NOTE | 2017-04-21 13:50 | CONS ---
Date/Time of Note Date/Time of Note DATE: 04/21/17 TIME: 13:48 Assessment/Plan Assessment/Plan Chief Complaint/Hosp Course SUBJECTIVE: No acute changes overnight. The patient is alert, feels good, eating lunch, no fevers MICROBIOLOGY: Blood culture negative. Urine culture grew oxacillin sensitive staph aureus and multidrug-resistant Proteus mirabilis ANTIMICROBIALS: The patient is on levofloxacin and cefepime. She is also getting steroids. DIAGNOSTICS: Chest x-ray on admission revealed bibasilar discoid atelectasis and small bilateral pleural effusions. Antimicrobials: Levaquin, cefepime day #5 INDWELLINGS: Tang catheter. PHYSICAL EXAMINATION: GENERAL: Obese, chronically ill-appearing, elderly woman who is awake, in no distress. HEENT: Head atraumatic, normocephalic. Sclerae anicteric. Buccal mucosa dry. NECK: Supple. CHEST: Rise symmetrical. Breath sounds with bilateral rhonchi and expiratory wheezes. HEART: S1, S2. ABDOMEN: Soft. Bowel tones present. EXTREMITIES: Bilateral lower extremities wasted. Chronic venostasis and edema. ASSESSMENT: 1. Acute hypoxemic respiratory failure secondary to healthcare-associated pneumonia and bilateral pleural effusions. 2. Proteus mirabilis urinary tract infection. 3. Anemia. 4. Hypertension. 5. Obesity. PLAN: Patient is doing better, continue present care, antibiotics, follow cardiology and pulmonary recommendations. DW staff Problems: Consultation Date/Type/Reason Admit Date/Time Apr 16, 2017 at 06:14 Type of Consultation: id Exam/Review of Systems Vital Signs Vitals Vital Signs Date Time Temp Pulse Resp B/P Pulse Ox O2 Delivery O2 Flow Rate FiO2 04/21/17 12:02 65 04/21/17 11:42 98.5 18 136/76 93 04/21/17 07:33 Nasal Cannula 2.0 Intake and Output 04/20/17 04/20/17 04/21/17 15:00 23:00 07:00 Intake Total 500 ml Output Total 600 ml Balance -100 ml Results Result Diagram: 04/19/1724 04/19/17 0824 Medications Medications Current Medications Acetaminophen/ Hydrocodone Bitart ([place] (5/325)) 1 tab Q6 PRN PO Pain Last administered on 04/20/17t 20:35; Admin Dose 1 TAB; Start 04/16/17 at 07:30 Acetaminophen (Tylenol Tab) 1,000 mg Q6H PRN PO PAIN AND OR ELEVATED TEMP Last administered on 04/20/17 16:57; Admin Dose 1,000 MG; Start 04/16/17 at 18:00 Alendronate Sodium (Fosamax) 70 mg Loya@0730 PO Last administered on 04/17/17 08:20; Admin Dose 70 MG; Start 04/17/17 at 07:30 Ascorbic Acid (Vitamin C) 500 mg DAILY PO Last administered on 04/21/17 08:43 ; Admin Dose 500 MG; Start 04/17/17 at 09:00 Bisacodyl (Dulcolax Supp) 10 mg Q24H PRN [place] CONSTIPATION; Start 04/16/17 at 18 :00 Cholecalciferol (Vitamin D) 1,000 unit DAILY PO Last administered on 08:44; Admin Dose 1,000 UNIT; Start 04/17/17 at 09:00 Citalopram Hydrobromide (Celexa) 20 mg DAILY PO Last administered on 08:43; Admin Dose 20 MG; Start 04/17/17 at 09:00 Docusate Sodium (Colace) 200 mg QHS PRN PO CONSTIPATION; Start 04/16/17 at 18: 00 Furosemide (Lasix) 10 mg DAILY PO Last administered on 04/21/17 08:41; Admin Dose 10 MG; Start 04/17/17 at 09:00 Gabapentin (Neurontin) 300 mg QID PO Last administered on 04/21/17 12:07; Admin Dose 300 MG; Start 04/16/17 at 21:00 Acetaminophen/ Hydrocodone Bitart ([place] (5/325)) 1 tab Q4 PRN PO SEVERE PAIN LEVEL 7-10 Last administered on 04/21/17 05:26; Admin Dose 1 TAB; Start 04/16 at 18:00 Magnesium Hydroxide (Milk Of Mag) 30 ml DAILY PRN PO CONSTIPATION; Start 04/16 at 18:00 Mineral Oil (Fleet Mineral Oil Enema) 133 ml DAILY PRN [place] CONSTIPATION; Start 04/16/17 at 18:00 Multivitamins Therapeutic (Theragran) 1 tab DAILY PO Last administered on 04/21 08:44; Admin Dose 1 TAB; Start 04/17/17 at 09:00 Potassium Chloride (Klor-Con 20) 20 meq DAILY PO Last administered on 08:43; Admin Dose 20 MEQ; Start 04/17/17 at 09:00 Tramadol HCl (Ultram) 50 mg BID PRN PO PAIN Last administered on 04/19/17 02: 34; Admin Dose 50 MG; Start 04/16/17 at 18:00 Calcium Carbonate (Oyster Shell Calcium) 1.25 gm DAILY PO Last administered on 04/21/17 08:41; Admin Dose 1.25 GM; Start 04/17/17 at 09:00 Lactobacillus Acidophilus/ Rhamnosus (Culturelle) 1 cap BID PO Last administered on 04/21/17 08:44; Admin Dose 1 CAP; Start 04/16/17 at 21:00 Guaifenesin/ Codeine Phosphate 5 ml 5 ml Q4H PRN PO cough Last administered on 04/20/17 06:21; Admin Dose 5 ML; Start 04/16/17 at 21:30 Cefepime HCl (Maxipime 2gm/50 ml (Pmx)) 50 ml @ 100 mls/hr Q12 IVPB Last administered on 04/21/17 08:44; Admin Dose 100 MLS/HR; Start 04/17/17 at 09: 00 Miscellaneous Information (Pending Santyl Order For Wound Care) This patient briggs... PRN PRN XX WOUND CARE; Start 04/17/17 at 01:30 Nystatin (Nystatin Powder) 1 applic BID TOP Last administered on 04/21/17 08: 45; Admin Dose 1 APPLIC; Start 04/17/17 at 21:00 Pantoprazole 40 mg 40 mg DAILY@06 PO Last administered on 04/21/17 05:26; Admin Dose 40 MG; Start 04/19/17 at 06:00 Levofloxacin/ Dextrose (Levaquin 500mg/ D5W 100 ml (Pmx)) 100 ml @ 100 mls/hr Q24H IVPB Last administered on 04/21/17 12:02; Admin Dose 100 MLS/HR; Start 04/18/17 at 11:30 Apixaban (Eliquis) 2.5 mg BID PO Last administered on 04/21/17 08:42; Admin Dose 2.5 MG; Start 04/20/17 at 09:00 Prednisone (Prednisone) 30 mg DAILY PO ; Start 04/22/17 at 09:00 MIRTHA SUERO NP Apr 21, 2017 13:50
[2017-04-21] MEDS: traMADol 50 MG TAB PO PRN (16:12)
[2017-04-21] MEDS: GUAIFENESIN/CODEINE 5ML CUP PO PRN (21:27)
[2017-04-22] VITALS (9 sets, daily range): BP systolic 112–149; BP diastolic 65–69; PULSE 56–62; RESP 18–20
[2017-04-22] MEDS: ALBUTEROL/IPRATROPIUM (NEB) 3 ML AMP NEB PRN (00:24)
[2017-04-22] MEDS: ACETYLCYSTEINE 20% 4 ML VIAL NEB PRN (00:24)
[2017-04-22] MEDS: traMADol 50 MG TAB PO PRN ×2 (00:40→09:33)
[2017-04-22] MEDS: HYDROCODONE/APAP (5/325) TAB PO PRN ×3 (01:43→12:46)
[2017-04-22] MEDS: PANTOPRAZOLE (EC) 40 MG TAB PO SCH (05:00)
[2017-04-22 07:30] LABS: ABNORMAL IP MESSAGE 1; BASOPHILS % 0.3 % (0.0-2.0); EOSINOPHILS # 0.2 10^3/ul (0.0-0.5); HEMATOCRIT 36.4 % (37.0-47.0); HEMOGLOBIN 12.8 g/dl (12.0-16.0); LYMPHOCYTES # 3.5 10^3/ul (0.8-2.9); LYMPHOCYTES % 29.3 % (15.0-51.0); MEAN CORPUSCULAR HEMOGLOBIN 33.9 pg (29.0-33.0); MEAN CORPUSCULAR HGB CONC 35.2 g/dl (32.0-37.0); MEAN CORPUSCULAR VOLUME 96.3 fl (82.0-101.0); MONOCYTE # 1.7 10^3/ul (0.3-0.9); MONOCYTES % 14.2 % (0.0-11.0); NEUTROPHIL # 6.4 10^3/ul (1.6-7.5); NEUTROPHILS % 53.4 % (39.0-77.0); PLATELET COUNT 209 10^3/UL (140-415); RED BLOOD COUNT 3.78 10^6/ul (4.20-5.40); RED CELL DISTRIBUTION WIDTH 13.4 % (11.5-14.5); WHITE BLOOD COUNT 11.9 10^3/ul (4.8-10.8)
[2017-04-22 07:42] LABS: POSITIVE DIFF @See below
[2017-04-22 07:53] LABS: CALCIUM 8.3 mg/dl (8.4-10.2); CREATININE 0.45 mg/dl (0.44-1.00); MAGNESIUM 1.8 mg/dl (1.7-2.5); PHOSPHORUS 2.5 mg/dl (2.5-4.9); POTASSIUM 4.1 mmol/L (3.5-5.1)
[2017-04-22] MEDS ORDERED: predniSONE 10 MG TAB PO SCH (09:00)
[2017-04-22] MEDS: FUROSEMIDE 20 MG TAB PO SCH (09:32)
[2017-04-22] MEDS: CEFEPIME 2GM/50 ML (PMX) 50 ML IVPB SCH (09:32)
[2017-04-22] MEDS: APIXABAN 5 MG TABLET PO SCH (09:32)
[2017-04-22] MEDS: CITALOPRAM 20 MG TAB PO SCH (09:33)
[2017-04-22] MEDS: ASCORBIC ACID 500 MG TAB PO SCH (09:33)
[2017-04-22] MEDS: NYSTATIN 30 GM POWDER BTL TOP SCH (09:33)
[2017-04-22] MEDS: MULTIVITAMINS THERAPEUTIC TAB PO SCH (09:33)
[2017-04-22] MEDS: POTASSIUM CHLORIDE (SR) 20 MEQ TAB PO SCH (09:33)
[2017-04-22] MEDS: CALCIUM CARBONATE 1.25 GM TAB PO SCH (09:33)
[2017-04-22] MEDS: CHOLECALCIFEROL 1,000 UNIT TAB PO SCH (09:33)
[2017-04-22] MEDS: GABAPENTIN 300 MG CAP PO SCH ×2 (09:34→12:44)
[2017-04-22] MEDS: LACTOBACILLUS RHAMNOSUS CAP PO SCH (09:34)
[2017-04-22] MEDS: LEVOFLOXACIN 500MG/D5W (PMX) 100 ML IVPB SCH ×3 (11:30→13:45)
--- NOTE | 2017-04-22 11:52 | CONS ---
Date/Time of Note Date/Time of Note DATE: 04/22/17 TIME: 11:50 Assessment/Plan Assessment/Plan Additional Assessment/Plan Assessment recommendations; 1. Patient admitted with severe exacerbation and bilateral bronchopneumonia with significant clinical improvement. 2. History of depression and neuropathy. Patient to be transferred to [facility]. Taper down prednisone dosing in the next week as dictated by her clinical status. Consider stopping IV antibiotics. Consultation Date/Type/Reason Admit Date/Time Apr 16, 2017 at 06:14 Type of Consultation: Pulmonary 24 HR Interval Summary Free Text/Dictation Patient's condition is stable. Denies any further shortness of breath. Complains of very scant cough. Denies any wheezing or sputum production. General exam; elderly woman, awake and alert. Currently in no distress. Exam/Review of Systems Vital Signs Vitals Vital Signs Date Time Temp Pulse Resp B/P Pulse Ox O2 Delivery O2 Flow Rate FiO2 04/22/17 08:30 Nasal Cannula 2.0 04/22/17 08:15 98.0 67 18 135/67 98 Intake and Output 04/21/17 04/21/17 04/22/17 15:00 23:00 07:00 Intake Total 50 ml 1100 ml 800 ml Output Total 1300 ml 750 ml Balance 50 ml -200 ml 50 ml Exam HEENT exam; supple neck, no JVD. No lymphadenopathy. Midline trachea. No thyromegaly. Patient has fair dentition. Pupils are midsize and reactive to light. Chest exam; diminished but clear breath sounds. S1-S2 audible, no murmurs. Regular rhythm. Abdomen exam; soft, nontender. No organomegaly. Bowel sounds audible. Extremity exam; no edema. 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 Results Result Diagram: 04/22/17 0645 04/22/17 0645 Results 24 hrs Laboratory Tests Test 04/22/17 06:45 White Blood Count 11.9 #H Red Blood Count 3.78 L Hemoglobin 12.8 Hematocrit 36.4 L Mean Corpuscular Volume 96.3 Mean Corpuscular Hemoglobin 33.9 H Mean Corpuscular Hemoglobin Concent 35.2 Red Cell Distribution Width 13.4 Platelet Count 209 Mean Platelet Volume 11.0 H Neutrophils % 53.4 Lymphocytes % 29.3 Monocytes % 14.2 H Eosinophils % 2.0 Basophils % 0.3 Nucleated Red Blood Cells % 0.0 Neutrophils # 6.4 Lymphocytes # 3.5 H Monocytes # 1.7 H Eosinophils # 0.2 Basophils # 0.0 Nucleated Red Blood Cells # 0.0 Sodium Level 138 Potassium Level 4.1 Chloride Level 100 Carbon Dioxide Level 29 Anion Gap 13 Blood Urea Nitrogen 33 H Creatinine 0.45 Glucose Level 115 Calcium Level 8.3 L Phosphorus Level 2.5 Magnesium Level 1.8 Medications Medications Current Medications Acetaminophen/ Hydrocodone Bitart ([place] (5/325)) 1 tab Q6 PRN PO Pain Last administered on 04/22/17 09:32; Admin Dose 1 TAB; Start 04/16/17 at 07:30 Acetaminophen (Tylenol Tab) 1,000 mg Q6H PRN PO PAIN AND OR ELEVATED TEMP Last administered on 04/20/17 16:57; Admin Dose 1,000 MG; Start 04/16/17 at 18:00 Alendronate Sodium (Fosamax) 70 mg Loya@0730 PO Last administered on 04/17/17 08:20; Admin Dose 70 MG; Start 04/17/17 at 07:30 Ascorbic Acid (Vitamin C) 500 mg DAILY PO Last administered on 04/22/17 09:33 ; Admin Dose 500 MG; Start 04/17/17 at 09:00 Bisacodyl (Dulcolax Supp) 10 mg Q24H PRN [place] CONSTIPATION; Start 04/16/17 at 18 :00 Cholecalciferol (Vitamin D) 1,000 unit DAILY PO Last administered on 09:33; Admin Dose 1,000 UNIT; Start 04/17/17 at 09:00 Citalopram Hydrobromide (Celexa) 20 mg DAILY PO Last administered on 09:33; Admin Dose 20 MG; Start 04/17/17 at 09:00 Docusate Sodium (Colace) 200 mg QHS PRN PO CONSTIPATION; Start 04/16/17 at 18: 00 Furosemide (Lasix) 10 mg DAILY PO Last administered on 04/22/17 09:32; Admin Dose 10 MG; Start 04/17/17 at 09:00 Gabapentin (Neurontin) 300 mg QID PO Last administered on 04/22/17 09:34; Admin Dose 300 MG; Start 04/16/17 at 21:00 Acetaminophen/ Hydrocodone Bitart ([place] (5/325)) 1 tab Q4 PRN PO SEVERE PAIN LEVEL 7-10 Last administered on 04/22/17 01:43; Admin Dose 1 TAB; Start 04/16 at 18:00 Magnesium Hydroxide (Milk Of Mag) 30 ml DAILY PRN PO CONSTIPATION; Start 04/16 at 18:00 Mineral Oil (Fleet Mineral Oil Enema) 133 ml DAILY PRN [place] CONSTIPATION; Start 04/16/17 at 18:00 Multivitamins Therapeutic (Theragran) 1 tab DAILY PO Last administered on 04/22 09:33; Admin Dose 1 TAB; Start 04/17/17 at 09:00 Potassium Chloride (Klor-Con 20) 20 meq DAILY PO Last administered on 09:33; Admin Dose 20 MEQ; Start 04/17/17 at 09:00 Tramadol HCl (Ultram) 50 mg BID PRN PO PAIN Last administered on 04/22/17 09: 33; Admin Dose 50 MG; Start 04/16/17 at 18:00 Calcium Carbonate (Oyster Shell Calcium) 1.25 gm DAILY PO Last administered on 04/22/17 09:33; Admin Dose 1.25 GM; Start 04/17/17 at 09:00 Lactobacillus Acidophilus/ Rhamnosus (Culturelle) 1 cap BID PO Last administered on 04/22/17 09:34; Admin Dose 1 CAP; Start 04/16/17 at 21:00 Guaifenesin/ Codeine Phosphate 5 ml 5 ml Q4H PRN PO cough Last administered on 04/21/17 21:27; Admin Dose 5 ML; Start 04/16/17 at 21:30 Cefepime HCl (Maxipime 2gm/50 ml (Pmx)) 50 ml @ 100 mls/hr Q12 IVPB Last administered on 04/22/17 09:32; Admin Dose 100 MLS/HR; Start 04/17/17 at 09: 00 Miscellaneous Information (Pending Santyl Order For Wound Care) This patient briggs... PRN PRN XX WOUND CARE; Start 04/17/17 at 01:30 Nystatin (Nystatin Powder) 1 applic BID TOP Last administered on 04/22/17 09: 33; Admin Dose 1 APPLIC; Start 04/17/17 at 21:00 Pantoprazole 40 mg 40 mg DAILY@06 PO Last administered on 04/22/17 05:00; Admin Dose 40 MG; Start 04/19/17 at 06:00 Levofloxacin/ Dextrose (Levaquin 500mg/ D5W 100 ml (Pmx)) 100 ml @ 100 mls/hr Q24H IVPB Last administered on 04/21/17 12:02; Admin Dose 100 MLS/HR; Start 04/18/17 at 11:30 Apixaban (Eliquis) 2.5 mg BID PO Last administered on 04/22/17 09:32; Admin Dose 2.5 MG; Start 04/20/17 at 09:00 Prednisone (Prednisone) 30 mg DAILY PO Last administered on 04/22/17 09:33; Admin Dose 30 MG; Start 04/22/17 at 09:00 ALEJO FERGUSON Apr 22, 2017 11:52
--- NOTE | 2017-04-22 14:29 | CONS ---
Date/Time of Note Date/Time of Note DATE: 04/22/17 TIME: 14:28 Assessment/Plan Assessment/Plan Chief Complaint/Hosp Course SUBJECTIVE: No acute changes overnight. The patient is alert, feels good, eating lunch, no fevers MICROBIOLOGY: Blood culture negative. Urine culture grew oxacillin sensitive staph aureus and multidrug-resistant Proteus mirabilis ANTIMICROBIALS: The patient is on levofloxacin and cefepime. She is also getting steroids. DIAGNOSTICS: Chest x-ray on admission revealed bibasilar discoid atelectasis and small bilateral pleural effusions. Antimicrobials: Levaquin, cefepime day #6 INDWELLINGS: Tang catheter. PHYSICAL EXAMINATION: GENERAL: Obese, chronically ill-appearing, elderly woman who is awake, in no distress. HEENT: Head atraumatic, normocephalic. Sclerae anicteric. Buccal mucosa dry. NECK: Supple. CHEST: Rise symmetrical. Breath sounds with bilateral rhonchi and expiratory wheezes. HEART: S1, S2. ABDOMEN: Soft. Bowel tones present. EXTREMITIES: Bilateral lower extremities wasted. Chronic venostasis and edema. ASSESSMENT: 1. Acute hypoxemic respiratory failure secondary to healthcare-associated pneumonia and bilateral pleural effusions. 2. Proteus mirabilis urinary tract infection. 3. Anemia. 4. Hypertension. 5. Obesity. PLAN: Patient is doing better, continue present care, anticipate dc on oral Levaquin for 5 more days, follow cardiology and pulmonary recommendations. [facility] staff Problems: Consultation Date/Type/Reason Admit Date/Time Apr 16, 2017 at 06:14 Type of Consultation: id Exam/Review of Systems Vital Signs Vitals Vital Signs Date Time Temp Pulse Resp B/P Pulse Ox O2 Delivery O2 Flow Rate FiO2 04/22/17 12:30 Nasal Cannula 2.0 04/22/17 12:27 98.0 67 18 142/68 98 Intake and Output 04/21/17 04/21/17 04/22/17 15:00 23:00 07:00 Intake Total 50 ml 1100 ml 800 ml Output Total 1300 ml 750 ml Balance 50 ml -200 ml 50 ml Results Result Diagram: 04/22/17 0645 04/22/17 0645 Results 24 hrs Laboratory Tests Test 04/22/17 06:45 White Blood Count 11.9 #H Red Blood Count 3.78 L Hemoglobin 12.8 Hematocrit 36.4 L Mean Corpuscular Volume 96.3 Mean Corpuscular Hemoglobin 33.9 H Mean Corpuscular Hemoglobin Concent 35.2 Red Cell Distribution Width 13.4 Platelet Count 209 Mean Platelet Volume 11.0 H Neutrophils % 53.4 Lymphocytes % 29.3 Monocytes % 14.2 H Eosinophils % 2.0 Basophils % 0.3 Nucleated Red Blood Cells % 0.0 Neutrophils # 6.4 Lymphocytes # 3.5 H Monocytes # 1.7 H Eosinophils # 0.2 Basophils # 0.0 Nucleated Red Blood Cells # 0.0 Sodium Level 138 Potassium Level 4.1 Chloride Level 100 Carbon Dioxide Level 29 Anion Gap 13 Blood Urea Nitrogen 33 H Creatinine 0.45 Glucose Level 115 Calcium Level 8.3 L Phosphorus Level 2.5 Magnesium Level 1.8 Medications Medications Current Medications Acetaminophen/ Hydrocodone Bitart ([place] (5/325)) 1 tab Q6 PRN PO Pain Last administered on 04/22/17 09:32; Admin Dose 1 TAB; Start 04/16/17 at 07:30 Acetaminophen (Tylenol Tab) 1,000 mg Q6H PRN PO PAIN AND OR ELEVATED TEMP Last administered on 04/20/17 16:57; Admin Dose 1,000 MG; Start 04/16/17 at 18:00 Alendronate Sodium (Fosamax) 70 mg [place]@0730 PO Last administered on 04/17/17 08:20; Admin Dose 70 MG; Start 04/17/17 at 07:30 Ascorbic Acid (Vitamin C) 500 mg DAILY PO Last administered on 04/22/17 09:33 ; Admin Dose 500 MG; Start 04/17/17 at 09:00 Bisacodyl (Dulcolax Supp) 10 mg Q24H PRN [place] CONSTIPATION; Start 04/16/17 at 18 :00 Cholecalciferol (Vitamin D) 1,000 unit DAILY PO Last administered on 09:33; Admin Dose 1,000 UNIT; Start 04/17/17 at 09:00 Citalopram Hydrobromide (Celexa) 20 mg DAILY PO Last administered on 09:33; Admin Dose 20 MG; Start 04/17/17 at 09:00 Docusate Sodium (Colace) 200 mg QHS PRN PO CONSTIPATION; Start 04/16/17 at 18: 00 Furosemide (Lasix) 10 mg DAILY PO Last administered on 04/22/17 09:32; Admin Dose 10 MG; Start 04/17/17 at 09:00 Gabapentin (Neurontin) 300 mg QID PO Last administered on 04/22/17 12:44; Admin Dose 300 MG; Start 04/16/17 at 21:00 Acetaminophen/ Hydrocodone Bitart ([place] (5/325)) 1 tab Q4 PRN PO SEVERE PAIN LEVEL 7-10 Last administered on 04/22/17 12:46; Admin Dose 1 TAB; Start 04/16 at 18:00 Magnesium Hydroxide (Milk Of Mag) 30 ml DAILY PRN PO CONSTIPATION; Start 04/16 at 18:00 Mineral Oil (Fleet Mineral Oil Enema) 133 ml DAILY PRN [place] CONSTIPATION; Start 04/16/17 at 18:00 Multivitamins Therapeutic (Theragran) 1 tab DAILY PO Last administered on 04/22 09:33; Admin Dose 1 TAB; Start 04/17/17 at 09:00 Potassium Chloride (Klor-Con 20) 20 meq DAILY PO Last administered on 09:33; Admin Dose 20 MEQ; Start 04/17/17 at 09:00 Tramadol HCl (Ultram) 50 mg BID PRN PO PAIN Last administered on 04/22/17 09: 33; Admin Dose 50 MG; Start 04/16/17 at 18:00 Calcium Carbonate (Oyster Shell Calcium) 1.25 gm DAILY PO Last administered on 04/22/17 09:33; Admin Dose 1.25 GM; Start 04/17/17 at 09:00 Lactobacillus Acidophilus/ Rhamnosus (Culturelle) 1 cap BID PO Last administered on 04/22/17 09:34; Admin Dose 1 CAP; Start 04/16/17 at 21:00 Guaifenesin/ Codeine Phosphate 5 ml 5 ml Q4H PRN PO cough Last administered on 04/21/17 21:27; Admin Dose 5 ML; Start 04/16/17 at 21:30 Cefepime HCl (Maxipime 2gm/50 ml (Pmx)) 50 ml @ 100 mls/hr Q12 IVPB Last administered on 04/22/17 09:32; Admin Dose 100 MLS/HR; Start 04/17/17 at 09: 00 Misc[facility] This patient briggs... PRN PRN XX WOUND CARE; Start 04/17/17 at 01:30 Nystatin (Nystatin Powder) 1 applic BID TOP Last administered on 04/22/17 09: 33; Admin Dose 1 APPLIC; Start 04/17/17 at 21:00 Pantoprazole 40 mg 40 mg DAILY@06 PO Last administered on 04/22/17 05:00; Admin Dose 40 MG; Start 04/19/17 at 06:00 Levofloxacin/ Dextrose (Levaquin 500mg/ D5W 100 ml (Pmx)) 100 ml @ 100 mls/hr Q24H IVPB Last administered on 04/22/17 12:00; Admin Dose 100 MLS/HR; Start 04/18/17 at 11:30 Apixaban (Eliquis) 2.5 mg BID PO Last administered on 04/22/17 09:32; Admin Dose 2.5 MG; Start 04/20/17 at 09:00 Prednisone (Prednisone) 30 mg DAILY PO Last administered on 04/22/17 09:33; Admin Dose 30 MG; Start 04/22/17 at 09:00 MIRTHA SUERO NP Apr 22, 2017 14:29
--- NOTE | 2017-04-22 16:13 | CONS ---
Date/Time of Note Date/Time of Note DATE: 04/22/17 TIME: 16:11 Consult Date/Type/Reason Admit Date/Time Apr 16, 2017 at 06:14 Type of Consultation: CV Subjective Cardiology follow-up progress note: Subjective: Discussed with staff and rhythm strip was reviewed. Patient remains sinus rhythm. Patient denies any left-sided chest pain or pressure to me. She is feeling a lot less today She denies any palpitation to me. Objective: General: no acute distress HEENT: NC/AT. pupils are equal. round. NECK: NO JVD. no stridor. CV: RRR. systolic murmur; no gallop or rubs. PULM: + Diffuse rhonchi. GI: SOFT, NT, ND, no rebound or guarding Extremity: + B/L LE edema. no clubbing. neuro: awake and alert, OX3. Psych: calm and pleasant rectal: deferred : Deferred ECHO EF 55% U/S LE : no DVT Objective Vital Signs Date Time Temp Pulse Resp B/P Pulse Ox O2 Delivery O2 Flow Rate FiO2 04/22/17 16:06 Nasal Cannula 2.0 04/22/17 16:01 62 04/22/17 12:27 98.0 18 142/68 98 Intake and Output 04/21/17 04/21/17 04/22/17 15:00 23:00 07:00 Intake Total 50 ml 1100 ml 800 ml Output Total 1300 ml 750 ml Balance 50 ml -200 ml 50 ml Results/Medications Result Diagram: 04/22/17 0645 04/22/17 0645 Results 24 hrs Laboratory Tests Test 04/22/17 06:45 White Blood Count 11.9 #H Red Blood Count 3.78 L Hemoglobin 12.8 Hematocrit 36.4 L Mean Corpuscular Volume 96.3 Mean Corpuscular Hemoglobin 33.9 H Mean Corpuscular Hemoglobin Concent 35.2 Red Cell Distribution Width 13.4 Platelet Count 209 Mean Platelet Volume 11.0 H Neutrophils % 53.4 Lymphocytes % 29.3 Monocytes % 14.2 H Eosinophils % 2.0 Basophils % 0.3 Nucleated Red Blood Cells % 0.0 Neutrophils # 6.4 Lymphocytes # 3.5 H Monocytes # 1.7 H Eosinophils # 0.2 Basophils # 0.0 Nucleated Red Blood Cells # 0.0 Sodium Level 138 Potassium Level 4.1 Chloride Level 100 Carbon Dioxide Level 29 Anion Gap 13 Blood Urea Nitrogen 33 H Creatinine 0.45 Glucose Level 115 Calcium Level 8.3 L Phosphorus Level 2.5 Magnesium Level 1.8 Medications Current Medications Acetaminophen/ Hydrocodone Bitart ([place] (5/325)) 1 tab Q6 PRN PO Pain Last administered on 04/22/17 09:32; Admin Dose 1 TAB; Start 04/16/17 at 07:30 Acetaminophen (Tylenol Tab) 1,000 mg Q6H PRN PO PAIN AND OR ELEVATED TEMP Last administered on 04/20/17 16:57; Admin Dose 1,000 MG; Start 04/16/17 at 18:00 Alendronate Sodium (Fosamax) 70 mg Loya@0730 PO Last administered on 04/17/17 08:20; Admin Dose 70 MG; Start 04/17/17 at 07:30 Ascorbic Acid (Vitamin C) 500 mg DAILY PO Last administered on 04/22/17 09:33 ; Admin Dose 500 MG; Start 04/17/17 at 09:00 Bisacodyl (Dulcolax Supp) 10 mg Q24H PRN [place] CONSTIPATION; Start 04/16/17 at 18 :00 Cholecalciferol (Vitamin D) 1,000 unit DAILY PO Last administered on 09:33; Admin Dose 1,000 UNIT; Start 04/17/17 at 09:00 Citalopram Hydrobromide (Celexa) 20 mg DAILY PO Last administered on 09:33; Admin Dose 20 MG; Start 04/17/17 at 09:00 Docusate Sodium (Colace) 200 mg QHS PRN PO CONSTIPATION; Start 04/16/17 at 18: 00 Furosemide (Lasix) 10 mg DAILY PO Last administered on 04/22/17 09:32; Admin Dose 10 MG; Start 04/17/17 at 09:00 Gabapentin (Neurontin) 300 mg QID PO Last administered on 04/22/17 12:44; Admin Dose 300 MG; Start 04/16/17 at 21:00 Acetaminophen/ Hydrocodone Bitart ([place] (5/325)) 1 tab Q4 PRN PO SEVERE PAIN LEVEL 7-10 Last administered on 04/22/17 12:46; Admin Dose 1 TAB; Start 04/16 at 18:00 Magnesium Hydroxide (Milk Of Mag) 30 ml DAILY PRN PO CONSTIPATION; Start 04/16 at 18:00 Mineral Oil (Fleet Mineral Oil Enema) 133 ml DAILY PRN [place] CONSTIPATION; Start 04/16/17 at 18:00 Multivitamins Therapeutic (Theragran) 1 tab DAILY PO Last administered on 04/22 09:33; Admin Dose 1 TAB; Start 04/17/17 at 09:00 Potassium Chloride (Klor-Con 20) 20 meq DAILY PO Last administered on 09:33; Admin Dose 20 MEQ; Start 04/17/17 at 09:00 Tramadol HCl (Ultram) 50 mg BID PRN PO PAIN Last administered on 04/22/17 09: 33; Admin Dose 50 MG; Start 04/16/17 at 18:00 Calcium Carbonate (Oyster Shell Calcium) 1.25 gm DAILY PO Last administered on 04/22/17 09:33; Admin Dose 1.25 GM; Start 04/17/17 at 09:00 Lactobacillus Acidophilus/ Rhamnosus (Culturelle) 1 cap BID PO Last administered on 04/22/17 09:34; Admin Dose 1 CAP; Start 04/16/17 at 21:00 Guaifenesin/ Codeine Phosphate 5 ml 5 ml Q4H PRN PO cough Last administered on 04/21/17 21:27; Admin Dose 5 ML; Start 04/16/17 at 21:30 Cefepime HCl (Maxipime 2gm/50 ml (Pmx)) 50 ml @ 100 mls/hr Q12 IVPB Last administered on 04/22/17 09:32; Admin Dose 100 MLS/HR; Start 04/17/17 at 09: 00 Miscellaneous Information (Pending Santyl Order For Wound Care) This patient briggs... PRN PRN XX WOUND CARE; Start 04/17/17 at 01:30 Nystatin (Nystatin Powder) 1 applic BID TOP Last administered on 04/22/17 09: 33; Admin Dose 1 APPLIC; Start 04/17/17 at 21:00 Pantoprazole 40 mg 40 mg DAILY@06 PO Last administered on 04/22/17 05:00; Admin Dose 40 MG; Start 04/19/17 at 06:00 Levofloxacin/ Dextrose (Levaquin 500mg/ D5W 100 ml (Pmx)) 100 ml @ 100 mls/hr Q24H IVPB Last administered on 04/22/17 13:45; Admin Dose 100 MLS/HR; Start 04/18/17 at 11:30 Apixaban (Eliquis) 2.5 mg BID PO Last administered on 04/22/17 09:32; Admin Dose 2.5 MG; Start 04/20/17 at 09:00 Prednisone (Prednisone) 30 mg DAILY PO Last administered on 04/22/17 09:33; Admin Dose 30 MG; Start 04/22/17 at 09:00 Assessment/Plan Chief Complaint/Hosp Course 1. Pneumonia/bronchitis. 2. Hypoxemic respiratory failure secondary to above. 3. History of lower extremity DVT. 4. Lower extremity edema 5. History of arrhythmia : currently appear to be stable though. Recommendations: Continue with respiratory care. Low-dose diuretics will be continued. Antibiotic and pulmonary care as per pulmonary team and internal medicine. cont telemetry. cont Eliquis a dose of 2.5 mg p.o. twice daily for her chronic DVT. dc planning is in process Thank you for his referral. I will continue to follow along with you. KIZZY RADER MD [facility]. Problems: KIZZY RADER MD Apr 22, 2017 16:13
--- NOTE | 2017-04-23 04:14 | DS ---
DATE OF ADMISSION: 04/16/2017 DATE OF DISCHARGE: 04/22/2017 HOSPITAL COURSE: This is a 76-year-old female with a past medical history of DVT, history of hypert ension, anemia, chronic pain syndrome, history of chronic left hip wound, arthritis, hypothyroidism who presented to [facility] with shortness of breath and respiratory failure. The patient was subsequently admitted to telemetry. She was diagnosed with pneumonia and acute hypoxem ic respiratory failure and sepsis. In terms of the patient's respiratory failure, the patient was s een by kiln fireman, Dr. Guillaume. The patient clinically improved with antibiotic therapy, nebulizer s and steroids. The patient is currently on 2 liters nasal cannula and will be discharged home on a tapering dose of prednisone. In terms of the patient's sepsis, it is secondary to pneumonia and UT I. The patient is currently on antibiotic regimen with clinical improvement. The patient was seen by Dr. Robertson from Infectious Disease. The patient is completing antibiotic course. In terms of th e patient's other medical problems, she had acute encephalopathy which is toxic metabolic and improv ed during the hospital course. The patient is also being seen by hand singer, Dr. Hogan, for hist ory of arrhythmia, who was in sinus rhythm during the hospital course. The patient's other chronic medical problems including chronic pain syndrome, arthritis, DVT, anemia have been stable during the hospital course. Currently, at this time, the patient is stable, in no acute distress. He will be discharged back to a skilled nurse facility for continued care. At the time of discharge, the patient is stable, in no acute distress. FINAL DIAGNOSES: 1. Acute hypoxemic respiratory failure secondary to pneumonia and sepsis. 2. Sepsis secondary to urinary tract infection and pneumonia. 3. Acute encephalopathy. 4. Hypertension. 5. Arrhythmia. 6. History of deep venous thrombosis. 7. Anemia. 8. History of lower extremity wounds. 9. Chronic pain syndrome. 10. Degenerative changes of bilateral shoulders. 11. General debility. FINAL MEDICATIONS: See reconciliation list. Please note, I spent over 40 minutes of time preparing the patient's discharge. Dictated By: DARRICK LYNN/JOSE Conf#: [id number] DID#: [id number] CC: CHONG CASTILLO MD;*EndCC*
== END 2017-04-22 17:12 | DRG 871 ==
LOC: E/R 03:53 → MS4 06:14
PROVIDERS: ADMIT Internal Medicine; ATTEND Internal Medicine
DX: A41.9 Sepsis, unspecified organism (principal); J96.01 Acute respiratory failure with hypoxia; I11.0 Hypertensive heart disease with heart failure; J18.9 Pneumonia, unspecified organism; G92 Toxic encephalopathy; N39.0 Urinary tract infection, site not specified; L89.223 Pressure ulcer of left hip, stage 3; I50.32 Chronic diastolic (congestive) heart failure; Z66 Do not resuscitate; Z86.718 Personal history of other venous thrombosis and embolism; J44.9 Chronic obstructive pulmonary disease, unspecified; Z87.891 Personal history of nicotine dependence; G89.4 Chronic pain syndrome; B96.4 Proteus (mirabilis) (morganii) as the cause of diseases classified elsewhere
CPT/HCPCS: 36415; 36600; 71010; 73030; 80048; 80053; 81001; 81003; 82803; 83605; 83735; 83880; 84100; 84484; 85025; 85610; 85730; 87040; 87081; 87086; 93005; 93306; 93970; 94640; 94664; 96374; 96375; J0692; J1956; J2060; J2920; J7030; J7040